=== PATIENT | male | born 1945 | race Two or more races ===

== ENCOUNTER → 2024-12-24 | Outpatient (CLI) | payer MEDICARE, BC, SELFPAY ==
[2024-12-24 11:39] LABS: Basophils % (Auto) 0 % (0-2.5); Eosinophils % (Auto) 1 % (0-10); Hematocrit 43.8 % (41.0-53.0); Hemoglobin 15.5 g/dL (13.5-16.0); Immature Granulocytes % (Auto) 0 % (0-0); Immature Granulocytes Auto 0.02 Thou/mm3 (0.00-0.00); Lymphocytes # (Auto) 1.2 Thou/mm3 (1.0-4.8); Lymphocytes % (Auto) 17 % (10-50); Mean Corpuscular HGB Conc 35.4 g/dl (31.0-37.0); Mean Corpuscular Volume 90 fL (80-100); Monocytes # (Auto) 0.5 Thou/mm3 (0.0-0.8); Monocytes % (Auto) 7 % (0-12); Neutrophils # (Auto) 5.3 Thou/mm3 (1.8-7.7); Neutrophils % (Auto) 74 % (37-80); Nucleated Red Blood Cell % 0 /100 WBC (0); Platelet Count 154 Thou/mm3 (140-440); RDW Standard Deviation 46.6 fL (35.1-43.9); Red Blood Count 4.85 Miln/mm3 (4.50-5.90); White Blood Count 7.1 Thou/mm3 (3.8-10.6)
[2024-12-24 11:48] LABS: Glucose Estimated Average 108 mg/dL (80-131); Hemoglobin A1C 5.4 % Hgb (4.8-6.0)
[2024-12-24 11:59] LABS: Alanine Aminotransferase 11 U/L (10-49); Albumin, Serum 4.1 gm/dL (3.4-4.8); Albumin/Globulin Ratio 1.6 (1.2-2.2); Alkaline Phosphatase 86 U/L (46-116); Anion Gap 10 (7-16); Aspartate Amino Transferase 14 U/L (0-34); BUN/Creatinine Ratio 21 Ratio (12-20); Bilirubin,Total 1.4 mg/dL (0.3-1.2); Blood Urea Nitrogen 19 mg/dL (9-23); Calcium 8.6 mg/dL (8.3-10.6); Calcium (Corrected) 8.6 mg/dL (8.5-10.1); Carbon Dioxide 23.2 mMol/L (20.0-31.0); Cardiac Risk Estimate 2.4 RATIO (4.0-6.7); Chloride 112 mMol/L (98-107); Cholesterol 136 mg/dL (132-200); Creatinine (Component) 0.9 mg/dL (0.6-1.3); Globulin 2.5 gm/dL (2.3-3.5); Glucose 102 mg/dL (74-106); HDL Cholesterol 56 mg/dL (40-60); LDL Cholesterol,Calculated 72 mg/dL (0-130); Osmolality,Calculated 290 (275-295); Potassium 4.1 mMol/L (3.4-5.1); Sodium 145 mMol/L (136-145); Thyroid Stimulating Hormone 1.13 uIU/mL (0.55-4.78); Total Protein 6.6 gm/dL (5.7-8.2); Triglycerides 38 mg/dL (30-150); eGFR > 60 See Note
[2024-12-24 12:00] LABS: Vitamin D 25 Hydroxy Total 34.2 ng/mL (7.3-40.2)
[2024-12-24 12:14] LABS: Prostate Specific Antigen 2.23 ng/mL (0-4.00)
== END | disposition home or self-care (01) ==
PROVIDERS: PCP Internal Medicine; Referring Provider Internal Medicine; Visit Provider Internal Medicine
DX: M19.90 Unspecified osteoarthritis, unspecified site (principal); E11.9 Type 2 diabetes mellitus without complications; E55.9 Vitamin D deficiency, unspecified; N40.1 Benign prostatic hyperplasia with lower urinary tract symptoms; E78.2 Mixed hyperlipidemia; E03.9 Hypothyroidism, unspecified
CPT/HCPCS: 36415; 80053; 80061; 82306; 83036; 84153; 84439; 84443; 85025

== ENCOUNTER 2025-03-15 03:13 | Inpatient (IN) | payer MEDICARE, BC, SELFPAY ==
[2025-03-15] VITALS (18 sets, daily range): BP systolic 101–116; BP diastolic 61–77; PULSE 68–130; RESP 14–24; TEMP 36.1–40.1; O2SAT 90–97; BMI 24.4
--- NOTE | 2025-03-15 03:25 | PD.EDAMS ---
Altered Mental Status RME/HPI General Chief Complaint: Altered Mental Status Stated Complaint: AMS Time Seen by Provider: 03/15/25 03:55 Arrival date/time: 03/15/25 03:13 RME / HPI RME / HPI narrative: Dr. Almeida?s Main ED Evaluation: 79yo male without significant prior medical history presents for rigors with fatigue and slight cough x 48 hours. Reported fever of 104.1 and arrived by EMS. Denies antecedant URI, abdominal pain, or diarrhea. 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 Reports baseline mild urinary frequenct, nocturia, and urgency. PMH unremarkable for HTN, DM, heart disease, or prior TIA; ?remote hx DVT. PSH noncontributory. Related Data Home Medications ?Medication ?Instructions ?Recorded ?Confirmed calcium carbonate (Calcium 500) 500 mg PO QDAY 02/16/19 10/24/22 cholecalciferol (vitamin D3) 25 1,000 unit PO QDAY 02/16/19 10/24/22 mcg (1,000 unit) capsule (Vitamin D3) ibuprofen 100 mg tablet 400 mg PO Q6H PRN Pain 02/16/19 10/24/22 Previous Rx's ?Medication ?Instructions ?Recorded acetaminophen 300 mg-codeine 30 mg 1 tab PO Q6H PRN pain #10 tabs 10/25/22 tablet Allergies Allergy/AdvReac Type Severity Reaction Status Date / Time No Known Allergies Allergy Verified 03/15/25 03:18 Review of Systems Review of Systems Systems Reviewed: All systems reviewed, normal except as documented Past Medical History Past Medical History NEUROLOGIC: Negative Neurological Disorders or Seizures CARDIAC: Negative Cardiac Disorders, Hypercholesterolemia, Congestive Heart Failure or Hypertension RESPIRATORY: Positive Sleep Apnea (has cpap, does not use); Negative Chronic Obstructive Pulmonary Disease (COPD) GASTROINTESTINAL: Negative Gastrointestinal Disorders GENITOURINARY: Positive Kidney Stones; Negative Renal Disease MUSCULOSKELETAL: Positive Musculoskeletal Disorders and Arthritis ENT: Positive Cataracts and Retinal Detachment (left eye) ENDOCRINE: Negative Diabetes Mellitus Type 1 or Diabetes Mellitus Type 2 HEMATOLOGIC: Negative Blood Disorders, Anemia or Leukemia OTHER HISTORY: Positive Falls; Negative Blood Transfusions, Blood Transfusion Reaction, Anesthesia Reactions or Cancer Surgical History SURGICAL: Positive Nose Surgery (septoplasty), Abdominal Surgery and Joint Replacement (left wrist has metal plate) Social History SMOKING STATUS: Never smoker ED Exam Narrative Physical exam: GENERAL APPEARANCE: alert and oriented x 4, tachycardic, febrile, no acute distress HEENT: Normocephalic, atraumatic; pupils equal, round, reactive to light; EOMI; mucous membranes pink, moist; oropharynx clear NECK: Supple LUNGS: CTABL; no wheezes, no rales, no rhonchi HEART: Tachycardic, irregularly irregular rhythm; normal S1, S2; no murmurs ABDOMEN: non distended; normal BS; soft, no tenderness, no guarding BACK: no CVA tenderness EXTREMITIES: atraumatic; no edema NEUROLOGIC: awake; alert and oriented x4; cranial nerves II-XII grossly intact; no focal sensory or motor deficits PSYCHIATRIC: appropriate mood and affect SKIN: warm, dry, normal color; no rashes Course Course Course Narrative: 0328: Sepsis alert initiated. Orders made at this time are congruent with ED Adult Sepsis Order List. Re-evaluation is to be completed. CXR ordered for determining the etiology of fever. 0534: NS IVF infused. Sepsis re-evaluation pending at the time of admission. Quality Measures Possible source: genitourinary Blood cultures ordered: yes Antibiotic ordered: Yes Pertinent labs: 03/15/25 03:50 Lactic Acid 2.0 mMol/L (0.4-2.0) Procalcitonin 7.93 H ng/ml (0.0-0.49) sepsis Orders Category Date Time Status Stem Mounter STAT Care 03/15/25 03:43 Active Continuous Pulse Oximetry STAT Care 03/15/25 03:43 Completed EKG (ED ONLY) *Do not use* NOW Care 03/15/25 03:43 Completed EKG (ED ONLY) *Do not use* NOW Care 03/15/25 05:23 Completed In and Out Catheter X1PRN Care 03/15/25 03:43 Completed Insert IV NOW Care 03/15/25 03:43 Active NPO STAT Care 03/15/25 03:43 Active Strict Intake and Output Routine Care 03/15/25 03:43 Ordered EKG (ED Only) Stat Exams 03/15/25 03:43 Draft EKG (ED Only) Stat Exams 03/15/25 05:23 Ordered XR chest 1V SEPSIS PROTOCOL Stat Exams 03/15/25 03:45 Taken Arterial Blood Gas Stat Lab 03/15/25 04:10 Completed B-Type Natriuretic Peptide Stat Lab 03/15/25 03:50 Completed Blood Culture (Lab) Stat Lab 03/15/25 03:50 Received CBC Stat Lab 03/15/25 03:50 Completed Comprehensive Metabolic Panel Stat Lab 03/15/25 03:50 Completed LDH (Lactate Dehydrogenase) Stat Lab 03/15/25 03:50 Completed Lactate (Lactic Acid) Stat Lab 03/15/25 03:50 Completed Lipase Stat Lab 03/15/25 03:50 Completed Magnesium Stat Lab 03/15/25 03:50 Completed Partial Thromboplastin Time Stat Lab 03/15/25 03:50 Completed Phosphorous Stat Lab 03/15/25 03:50 Completed Procalcitonin Stat Lab 03/15/25 03:50 Completed Prothrombin Time with INR Stat Lab 03/15/25 03:50 Completed TSH [Thyroid Stimulating Hormone] Stat Lab 03/15/25 05:23 Ordered Troponin I Stat Lab 03/15/25 03:50 Completed Troponin I Stat Lab 03/15/25 05:23 Ordered Urinalysis Stat Lab 03/15/25 04:11 Completed Urine Culture Stat Lab 03/15/25 04:11 Received Acetaminophen Tab [Tylenol ES Tab] Med 03/15/25 04:02 Discontinued 1,000 mg PO X1 ONE Magnesium Sulfate 4 GM Ivpb [Magnesium Sulfate Ivpb] Med 03/15/25 05:26 Active 4 gm in 50 ml IV X1 Piper/Tazo 3.375 gm Premix [Zosyn] Med 03/15/25 03:43 Discontinued 3.375 gm in 50 ml IV X1 Sodium Chloride 0.9% 1000 ml [Ns] 1,845 ml Med 03/15/25 03:43 Discontinued IV 1,845 mls/hr Vancomycin Inj 1,000 mg Med 03/15/25 03:45 Discontinued Sodium Chloride 0.9% 250 ml [Ns] 250 ml IV X1 Oxygen Delivery NOW RT 03/15/25 03:43 Active Vital Signs Vital signs: Vital Signs Temperature 104.1 F H 03/15/25 03:29 Pulse Rate 119 H 03/15/25 03:29 Respiratory Rate 19 03/15/25 03:29 Blood Pressure 114/69 03/15/25 03:29 Pulse Oximetry (%) 90 L 03/15/25 03:29 Oxygen Delivery Method Room Air 03/15/25 03:29 Altered Mental Status MDM Narrative MDM Narrative:: Scribe Attestation: 03/15/25 - Michelle Hickey, luis scribing for and in the presence of Dr. Almeida. 79yo male without significant prior medical history presents for rigors with fatigue and slight cough x 48 hours. Reported fever of 104.1 and arrived by EMS. Please see PE findings. Lab markers show WBC count 8.5, normal Hgb, normal platelets, left shift without bandemia. Chemistries demonstrates mildly elevated Cl 108, slightly low CO2 19, normal renal function, mildly elevated blood sugar 115, Total bilirubin slightly elevated at 1.6, normal transaminases, troponin elevated at 0.10, procalcitonin 7.9, lactate upper limits of normal at 2.0, Mg low at 1.3. Patient placed on equipment monitor phototypesetting and noted to be febrile with new onset of aFib RVR. Sepsis protocol initiated, cultures were obtained, and empiric antibiotics started. Troponin marginally elevated and likely rate-related ischemia. Patient aggressively hydrated according to sepsis protocol and after 120 minute period, patient converted to sinus tachycardia. Evidence of gross UTI. Will admit to hospitalist for further trending of troponins, treatment of underlying sepsis, and consider cardiology consult for new onset aFib. No signs of septic shock or evolving PR. Temperature decreased to 100.2 after antipyretic therapy. Dx: acute febrile illness, acute sepsis, new onset aFib with RVR, electrolyte imbalance, UTI. Dispo: admit to hospitalist. Patient data External records reviewed:: [facility] previous records (Per chart review, patient has no relevant previous ED visits or admissions to this facility.) and EMS form Clinical information provided by:: EMS Social determinants that could affect healthcare access:: none Patient has the following chronic illnesses:: none How is presenting disease/condition affected by chronic disease/condition?: no chronic disease Evaluation data The following diagnostics were reviewed and interpreted by me:: lab results, radiology exam(s) and EKG tracing(s) Lab and/or radiology exams considered but not ordered:: none Interpretation Summary: CXR shows no cardiomegaly, no pleural effusions, no infiltrates, according to my interpretation. EKG done at 0319, aFib RVR, rate of 124, no acute ST segment elevations, no ectopy, leftward axis, according to my interpretation. Repeat EKG done at 0525, NSR, rate of 99, no acute ST segment changes, no ectopy, leftward axis, normal intervals, according to my interpretation. Medications / Prescriptions Medications or Prescriptions considered but not ordered:: none Medication administrations:: Medication Administration History Magnesium Sulfate (Magnesium Sulfate Ivpb) 4 gm in 50 mls @ 12.5 mls/hr IV X1 ONE Stop: 03/15/25 09:25 Discontinued Medications Acetaminophen (Acetaminophen 500 Mg Tablet) 1,000 mg PO X1 ONE Stop: 03/15/25 04:03 Last Admin: 03/15/25 04:08 Dose: 1,000 mg Documented By: WILLAM Sodium Chloride (Ns) 1,845 mls @ 1,845 mls/hr 30 ml/kg infuse over 60 min (1845 ml) IV .Q1H ONE Stop: 03/15/25 04:42 Last Infusion: 03/15/25 05:34 Dose: Infused Documented By: Admin: 03/15/25 04:09 Dose: 1,845 mls/hr Documented By: WILLAM Piperacillin/Tazobactam/Dextrose (Zosyn) 3.375 gm in 50 mls @ 100 mls/hr IV X1 ONE Stop: 03/15/25 04:12 Last Infusion: 03/15/25 05:01 Dose: Infused Documented By: Admin: 03/15/25 04:09 Dose: 100 mls/hr Documented By: WILLMA Vancomycin HCl 1,000 mg/ (Sodium Chloride) 250 mls @ 150 mls/hr IV X1 ONE Stop: 03/15/25 05:24 Last Admin: 03/15/25 04:36 Dose: 150 mls/hr Documented By: WILLAM see above Consultations Consultation(s) initiated? (list below): Yes Consultation #1 (Physician, Specialty, Details): Discussed case with Dr. Vidales, the resident physician, attending Dr. Pinedo from Hospitalist service regarding admission. Discussed patients ED course, exam findings, labs, and radiology results. The Hospitalist agrees to accept the patient for admission. Time: 05:36 Diagnosis Differential diagnosis altered mental status: sepsis and other (UTI, pneumonia, COVID, Influenza, URI, viral syndrome) Most likely diagnosis given after review of the tests above:: acute febrile illness, acute sepsis, new onset aFib with RVR, electrolyte imbalance, UTI Admission Indicated Admission indicated?: indicated Admission Request Was there a request for admission?: Yes Admission Attestation Admission request attestation: Discussed case with [] from Hospitalist service regarding admission. Discussed patients ED course, exam findings, labs, and radiology results. The Hospitalist [agrees,declines] to accept the patient for admission. Disposition Plan Disposition Plan: Admit Critical Care Time Critical Care Time Critical Care Time: Yes Total Critical Care Time (min.): 45 Attestation: The high probability of sudden, clinically significant deterioration in the patient?s condition required the highest level of my preparedness to intervene urgently. The services I provided to this patient were to treat and/or prevent clinically significant deterioration. Services included the following: chart data review, reviewing nursing notes and/or old charts, documentation time, apprenticeship consultant collaboration regarding findings and treatment options, medication orders and management, direct patient care, vital sign assessments and ordering, interpreting and reviewing diagnostic studies and lab tests. Aggregate critical care time includes only time during which I was engaged in work directly related to the patient?s care, as described above, whether at bedside or elsewhere in the Emergency Department. It did not include time spent performing other reported procedures or the services of residents, students, nurses or physician assistants. Discharge Plan Plan Patient Disposition: Admit Acute Care w/in Hospital Prescriptions/Referrals Prescriptions/Med Rec: No Action calcium carbonate [Calcium 500] 500 mg calcium (1,250 mg) Tablet 500 mg PO QDAY ibuprofen 100 mg Tablet 400 mg PO Q6H PRN (Reason: Pain) cholecalciferol (vitamin D3) [Vitamin D3] 1,000 unit Capsule 1,000 unit PO QDAY acetaminophen-codeine 300-30 mg tablet 1 tab PO Q6H PRN (Reason: pain) Qty: 10 0RF Referrals: Josr Coronado MD [Primary Care Provider] - In 1 week Problem List Clinical Impression: Acute febrile illness, Acute sepsis, New onset a-fib, Electrolyte imbalance, UTI (urinary tract infection) Patient/Caregiver Discharge Instructions Print Language: Slovak Stand Alone Forms: [facility] Award Info., Patient Portal Info Letter
--- NOTE | 2025-03-15 03:43 | EKG_ITS ---
[facility] Test Date: 2025-03-15 Pat Name: FAUSTINO NIEVES Department: Room: - Gender: Male [employer] Worker: : 1945 Requested By: Jl Nunez Order Number: [id number] Reading MD: Jl Nunez Measurements Intervals Stanley Rate: 99 P: 2 VA: 152 QRS: -68 QRSD: 125 T: 35 QT: 381 QTc: 489 Interpretive Statements SINUS RHYTHM LEFT ANTERIOR FASCICULAR BLOCK [QRS AXIS <= -45, QR IN I, RS IN II] PROBABLE LATERAL MYOCARDIAL INFARCTION , PROBABLY OLD [35 ms Q WAVE IN I/aVL/V5/V6] Compared to ECG 10/24/2022 10:45:59 Myocardial infarct finding now present Sinus arrhythmia no longer present ST (T wave) deviation no longer present /store/S0/[id number]/[id number].pdf
--- NOTE | 2025-03-15 03:45 | XR_ITS ---
Examination: AP chest single view Technique one AP portable upright chest single view Date and time on March 15, 2025 0401 hours Comparison December 22, 2020 INDICATIONS: Sepsis alert FINDINGS: Minor rounding left ventricle Ectatic thoracic aorta. No lobar pneumonia. Bilateral old rib fractures IMPRESSION: No lobar pneumonia
[2025-03-15] MEDS: ACETAMINOPHEN 500 MG TABLET 1000 MG PO (04:08)
[2025-03-15] MEDS: SODIUM CHLORIDE 0.9% 1000 ML 1,845 ML 1845 ML IV (04:09)
[2025-03-15] MEDS: PIPER/TAZO 3.375 GM PREMIX 3.375 GM/50 ML BAG IV (04:09)
[2025-03-15 04:18] LABS: Collection Type, Urine Clean Catch; Squamous Epithelial Cell,Urine 0 /hpf (0-5)
[2025-03-15 04:18] LABS: Base Excess -1 (-3-3); HCO3 21 mEq/L (20-26); Inspired Oxygen, FIO2 21 %; O2 Saturation 95 % (91-98); PCO2 26 mmHg (32.0-48.0); PO2 66 mmHg (83-108); pH, Arterial 7.51 (7.35-7.45)
[2025-03-15 04:20] LABS: Allen Test Performed/OK; Puncture Site Right Radial
[2025-03-15 04:21] LABS: Lactate (Lactic Acid) 2.0 mMol/L (0.4-2.0)
[2025-03-15 04:22] LABS: Basophils # (Auto) 0.0 Thou/mm3 (0.0-0.2); Basophils % (Auto) 0 % (0-2.5); Eosinophils # (Auto) 0.0 Thou/mm3 (0.0-0.5); Eosinophils % (Auto) 0 % (0-10); Hematocrit 41.6 % (41.0-53.0); Hemoglobin 14.3 g/dL (13.5-16.0); Immature Granulocytes Auto 0.04 Thou/mm3 (0.00-0.00); Lymphocytes # (Auto) 0.2 Thou/mm3 (1.0-4.8); Lymphocytes % (Auto) 3 % (10-50); Mean Corpuscular HGB Conc 34.4 g/dl (31.0-37.0); Mean Corpuscular Hemoglobin 32.1 pg (25.0-35.0); Mean Corpuscular Volume 93 fL (80-100); Monocytes # (Auto) 0.2 Thou/mm3 (0.0-0.8); Monocytes % (Auto) 2 % (0-12); Neutrophils # (Auto) 8.1 Thou/mm3 (1.8-7.7); Neutrophils % (Auto) 95 % (37-80); Nucleated Red Blood Cell # 0.00 Thou/mm3 (0.00-0.00); Nucleated Red Blood Cell % 0 /100 WBC (0); Platelet Count 147 Thou/mm3 (140-440); RDW Standard Deviation 44.4 fL (35.1-43.9); Red Blood Count 4.46 Miln/mm3 (4.50-5.90); White Blood Count 8.5 Thou/mm3 (3.8-10.6)
[2025-03-15 04:35] LABS: Bacteria,Urine 1+; Bilirubin,Urine Negative (Negative); Blood,Urine Trace (Negative); Clarity,Urine Clear (Clear/Hazy); Color,Urine Lt-Yellow (Lt Yel-Yel); Glucose, Urine Negative (Negative); Ketones,Urine 1+ (Negative); Leukocyte Esterase,Urine Positive (Negative); Nitrite,Urine Positive (Negative); PH,Urine 7.0 (5.0-7.0); Protein,Urine Negative (Neg - Trace); RBC,Urine 18 /hpf (0-3); Specific Gravity,Urine 1.015 (1.001-1.035); Urobilinogen,Urine Negative mg/dL (0.0-1.0); WBC,Urine 33 /hpf (0-5)
[2025-03-15] MEDS: Vancomycin Inj 1,000 MG in SODIUM CHLORIDE 0.9% 250 ML 250 ML 150 MG IV (04:36)
[2025-03-15 04:49] LABS: INR 1.1 (0.9-1.3); Partial Thromboplastin Time 25.9 Seconds (22.0-36.0); Prothrombin Time 12.4 Seconds (9.0-12.2)
[2025-03-15 04:52] LABS: B-Type Natriuretic Peptide 76 pg/mL (0-100)
[2025-03-15 04:59] LABS: Alanine Aminotransferase 12 U/L (10-49); Albumin, Serum 3.9 gm/dL (3.4-4.8); Albumin/Globulin Ratio 1.8 (1.2-2.2); Alkaline Phosphatase 80 U/L (46-116); Anion Gap 14 (7-16); Aspartate Amino Transferase 19 U/L (0-34); BUN/Creatinine Ratio 17 Ratio (12-20); Bilirubin,Total 1.6 mg/dL (0.3-1.2); Blood Urea Nitrogen 17 mg/dL (9-23); Calcium 8.6 mg/dL (8.3-10.6); Calcium (Corrected) 8.7 mg/dL (8.5-10.1); Carbon Dioxide 19.2 mMol/L (20.0-31.0); Chloride 108 mMol/L (98-107); Creatinine (Component) 1.0 mg/dL (0.6-1.3); Estimated Creatinine Clearance 52.1 mL/min (>60); Globulin 2.2 gm/dL (2.3-3.5); Glucose 115 mg/dL (74-106); LDH (Lactate Dehydrogenase) 251 U/L (120-246); Lipase 27 U/L (12-53); Magnesium 1.3 mg/dL (1.6-2.6); Osmolality,Calculated 283 (275-295); Phosphorous 1.3 mg/dL (2.4-5.1); Potassium 3.4 mMol/L (3.4-5.1); Procalcitonin 7.93 ng/ml (0.0-0.49); Sodium 141 mMol/L (136-145); Total Protein 6.1 gm/dL (5.7-8.2); eGFR > 60 See Note
[2025-03-15 05:04] LABS: Troponin I 0.109 ng/mL (0.0-0.045)
[2025-03-15] MEDS: Magnesium Sulfate 4 GM Ivpb 4 GM/50 ML BAG IV (06:03)
[2025-03-15] MEDS: cefTRIAXone/D5w 1gm IV premix 1 GM/50 ML BAG IV ×2 (06:21→10:35)
--- NOTE | 2025-03-15 06:26 | PD.RESHP ---
Documentation for date of: 03/15/25 [facility] History of Present Illness History of present illness: Patient is a 79 years old male without known past medical history who presented to the ED with complaint of altered mental status. Patient stated that he was having chills requiring multiple blankets at home yesterday. Did not check his temperature at home though. He was found to be confused by his and EMS was called. Denied any shortness of breath, chest pain, abdominal pain, diarrhea or constipation. Patient does endorse dysuria, urgency and nocturia. At the time of exam, patient was alert and oriented, back to his baseline. Initial vitals were significant for temperature of 104.1 ?F, pulse 119, saturating well on room air. Lab results were significant for phosphorus 1.3, magnesium 1.3, total bilirubin 1.6, LDH 251, troponin 0.109, procalcitonin 7.93. Bicarbonate of 19.2, urinalysis showed 33 WBCs, positive leukocyte esterase and nitrite, 1+ bacteria. Chest x-ray does not show any infiltration. Patient was also found to be in A-fib with RVR in the ED. Resolved on its own after fluid resuscitation. Received 30 cc/kg of IV fluid bolus. Tylenol 1000 mg, vancomycin, Zosyn, magnesium Rocephin in the ED. Past medical history: None Past surgical history: 2 hips and 1 knee replacement, 2 hernia repair, Cochlear implant social history: Denies smoking, drinks 1 beer every day, denies illicit drug abuse Review of Systems Review of Systems Systems Reviewed: All systems reviewed, normal except as documented Exam Vital Signs Temp Pulse Resp BP Pulse Ox O2 Del Method O2 Flow Rate 100.2 F 100 18 116/77 94 L Room Air 2 03/15/25 05:34 03/15/25 05:33 03/15/25 05:33 03/15/25 05:33 03/15/25 05:33 03/15/25 05:33 03/15/25 04:13 Narrative Exam General: Appears comfortable, saturating well on room air, alert and oriented, able to answer questions and follow command appropriately HEENT: PERRLA, moist mucous membrane Chest: Clear to auscultate bilaterally, no wheeze or crackles CVS: S1 and S2 heard without murmur Abdomen: Soft, mild suprapubic tenderness, no organomegaly, bowel sounds present Neuro: Alert and oriented x 4, able to move all his limbs, no focal neurological deficit MSK/skin: Normal strength and sensation throughout, no edema Results: Labs 03/15/25 03:50 03/15/25 03:50 Labs: Short CBC 03/15/25 Range/Units 03:50 WBC 8.5 (3.8-10.6) Thou/mm3 Hgb 14.3 (13.5-16.0) g/dL Hct 41.6 (41.0-53.0) % Plt Count 147 (140-440) Thou/mm3 BMP 03/15/25 03:50 Sodium 141 Potassium 3.4 Chloride 108 H Carbon Dioxide 19.2 L BUN 17 Creatinine 1.0 Glucose 115 H Calcium 8.6 Cardiac Enzymes 03/15/25 Range/Units 03:50 Troponin I 0.109 H* (0.0-0.045) ng/mL Liver Function 03/15/25 Range/Units 03:50 Total Bilirubin 1.6 H (0.3-1.2) mg/dL AST 19 (0-34) U/L ALT 12 (10-49) U/L Alkaline Phosphatase 80 (46-116) U/L Albumin 3.9 (3.4-4.8) gm/dL Urine 03/15/25 Range/Units 04:11 Urine Color Lt-Yellow (Lt Yel-Yel) Urine Clarity Clear (Clear/Hazy) Urine pH 7.0 (5.0-7.0) Ur Specific [place] 1.015 (1.001-1.035) Urine Protein Negative (Neg - Trace) Urine Glucose (UA) Negative (Negative) ABG Interpretation ABG results: 03/15/25 04:10 ABG pH 7.51 H ABG pCO2 26 L ABG pO2 66 L ABG HCO3 21 ABG O2 Saturation 95 ABG Base Excess -1 Quality Measures Quality Measures sepsis Current suspected stage: sepsis Possible source: genitourinary Blood cultures ordered: yes Antibiotic ordered: Yes Advance care planning discussed with:: patient Medications Home Medications and Allergies Home Medications ?Medication ?Instructions ?Recorded ?Confirmed ?Type calcium carbonate (Calcium 500) 500 mg PO QDAY 02/16/19 10/24/22 History cholecalciferol (vitamin D3) 25 1,000 unit PO QDAY 02/16/19 10/24/22 History mcg (1,000 unit) capsule (Vitamin D3) ibuprofen 100 mg tablet 400 mg PO Q6H PRN Pain 02/16/19 10/24/22 History Allergies Allergy/AdvReac Type Severity Reaction Status Date / Time No Known Allergies Allergy Verified 03/15/25 03:18 Visit Medications Acetaminophen (Acetaminophen 325 Mg Tablet) 650 mg PO Q6H PRN PRN Reason: Fever >100.4 or pain Stop: 04/14/25 06:04 Hydrocodone Bitart/Acetaminophen (Hydrocodone/Apap 5/325 Tablet) 1 tab PO Q4HR PRN PRN Reason: PAIN SCALE 4-10(Mod-Sev Stop: 03/20/25 06:04 Docusate Sodium (Docusate Sod 100 Mg Capsule) 100 mg PO QDAY PRN; Protocol PRN Reason: CONSTIPATION Stop: 04/14/25 06:04 Enoxaparin Sodium (Enoxaparin Sod Inj 40 Mg/0.4 Ml Syringe) 40 mg SC QDAY [facility] Stop: 03/29/25 08:59 Magnesium Sulfate (Magnesium Sulfate Ivpb) 4 gm in 50 mls @ 12.5 mls/hr IV X1 ONE Stop: 03/15/25 09:25 Last Admin: 03/15/25 06:03 Dose: 12.5 mls/hr Ceftriaxone Sodium/Dextrose (Rocephin/D5w 1gm Iv Premix) 1 gm in 50 mls @ 100 mls/hr IV QDAY DANAE Stop: 03/22/25 06:06 Last Admin: 03/15/25 06:21 Dose: 100 mls/hr Sennosides (Senna Tablet) 1 tab PO QDAY PRN; Protocol PRN Reason: constipation Stop: 04/14/25 06:04 Discontinued Medications Acetaminophen (Acetaminophen 500 Mg Tablet) 1,000 mg PO X1 ONE Stop: 03/15/25 04:03 Last Admin: 03/15/25 04:08 Dose: 1,000 mg Aspirin (Aspirin 325 Mg Tablet) 325 mg PO X1 ONE Stop: 03/15/25 05:46 Last Admin: 03/15/25 06:03 Dose: 325 mg Sodium Chloride (Ns) 1,845 mls @ 1,845 mls/hr 30 ml/kg infuse over 60 min (1845 ml) IV .Q1H ONE Stop: 03/15/25 04:42 Last Infusion: 03/15/25 05:34 Dose: Infused Piperacillin/Tazobactam/Dextrose (Zosyn) 3.375 gm in 50 mls @ 100 mls/hr IV X1 ONE Stop: 03/15/25 04:12 Last Infusion: 03/15/25 05:01 Dose: Infused Vancomycin HCl 1,000 mg/ (Sodium Chloride) 250 mls @ 150 mls/hr IV X1 ONE Stop: 03/15/25 05:24 Last Infusion: 03/15/25 06:19 Dose: Infused Assessment & Plan Plan Patient is a 79 years old male without known past medical history who presented to the ED with complaint of altered mental status. Was found to be septic with fever, tachycardia, elevated troponin.After examination of the patient and review of the clinical data I feel that this patient needs admission to the hospital for further treatment/evaluation. #Acute encephalopathy #Sepsis #UTI Patient presented with altered mentation, currently resolved Was found to be febrile, tachycardic has elevated troponin as endorgan damage Received 30 cc/kg IV fluid bolus in the ED. Continue with gentle IV hydration Blood and urine cultures are obtained Started on Rocephin 1 g daily Acetaminophen for fever #Episode of A-fib Patient was found to be on A-fib in the ED, self resolved Currently in sinus rhythm, we will monitor closely Will consider starting anticoagulation and cardiac consult if patient has further episodes #Elevated troponin Likely NSTEMI type II in setting of sepsis/A-fib Troponin is 0.109, patient denies chest pain, minimal ST elevation on 3 Trend troponin and monitor for symptoms closely #Electrolyte imbalances Patient has magnesium of 1.3, phosphorus 1.3, Chloride 108 Received 4 g of magnesium sulfate, ordered Neutra-Phos we will monitor closely and replete as needed #Hyperbilirubinemia Patient has bilirubin of 1.6, rest of the LFTs are within normal limits No right upper quadrant pain Ordered liver ultrasound Diet: Cardiac diet CODE STATUS: Full code DVT prophylaxis: Lovenox SC Disposition: Telemetry for management of sepsis secondary to UTI Nicko Pinedo MD
--- NOTE | 2025-03-15 07:01 | XR_ITS ---
Examination: Abdomen sonogram, Limited Date and time of exam: March 15, 2025 0747 hours INDICATIONS: Right upper abdominal pain beginning 2 months ago, elevated bilirubin on laboratory examination today, 1.6 Technique: Real-time cardoza scale transabdominal sonographic images of the upper abdomen obtained. Findings: Normal gallbladder Normal common bile duct 0.4 cm Pancreatic head 2.3 cm Liver 15 cm 15 mm and 9 mm right lobe liver cyst No biliary tract dilatation Normal hepatopedal portal venous oh Patent IVC IMPRESSION: Normal gallbladder Normal common bile duct
[2025-03-15 08:19] LABS: Thyroid Stimulating Hormone 0.43 uIU/mL (0.55-4.78)
[2025-03-15 08:20] LABS: Troponin I 0.352 ng/mL (0.0-0.045)
[2025-03-15] MEDS: NAPH,KPH MBDB 1 PACKET (1.5 GM) PO (08:38)
[2025-03-15] MEDS: SODIUM CHLORIDE 0.9% 1000 ML 1,000 ML 70 ML IV (08:39)
--- NOTE | 2025-03-15 10:34 | ECHO_ITS ---
Transthoracic Echo Report Ht (in): 65 Wt (lb): 147 Exam Location: Echo Lab Status: Inpatient Derrick Worker Well Service: Keeley Yun Indications: Procedure Performed: BP: 122 / 89 HR: 78 MEASUREMENTS (Male / Female) Normal Values 2D ECHO LV Diastolic Diameter PLAX 4.3 cm 4.2 - 5.9 / 3.9 - 5.3 cm LV Systolic Diameter PLAX 2.9 cm IVS Diastolic Thickness 1.0 cm 0.6 - 1.0 / 0.6 - 0.9 cm LVPW Diastolic Thickness 1.1 cm 0.6 - 1.0 / 0.6 - 0.9 cm LV Relative Wall Thickness 0.5 LVOT Diameter 1.9 cm LA Volume Index 66.3 cm?/m? 16 - 28 cm?/m? Ascending Aorta Diameter 3.5 cm M-MODE AV Cusp Separation MM 2.5 cm DOPPLER AV Peak Velocity 120.0 cm/s AV Peak Gradient 5.8 mmHg AV Mean Gradient 3.0 mmHg AV Velocity Time Integral 22.7 cm AI Peak Velocity 353.0 cm/s AI Peak Gradient 49.8 mmHg AI Pressure Half Time 529.0 ms LVOT Peak Velocity 99.9 cm/s LVOT Peak Gradient 4.0 mmHg LVOT Velocity Time Integral 22.1 cm LVOT Cardiac Index 2780.1 cm?/min?m? AV Area Cont Eq vti 2.8 cm? AV Area Cont Eq pk 2.4 cm? MV Area PHT 3.0 cm? Mitral E Point Velocity 43.5 cm/s Mitral A Point Velocity 68.2 cm/s Mitral E to A Ratio 0.6 LV E' Lateral Velocity 6.4 cm/s Mitral E to LV E' Lateral Ratio 6.8 LV E' Septal Velocity 5.1 cm/s Mitral E to LV E' Septal Ratio 8.5 TR Peak Velocity 198.0 cm/s TR Peak Gradient 15.7 mmHg PV Peak Velocity 83.6 cm/s PV Peak Gradient 2.8 mmHg FINDINGS Left Ventricle Normal left ventricular size, wall thickness, systolic function with no obvious regional wall motion abnormalities. There is grade I diastolic dysfunction of the left ventricle (impaired relaxation pattern). The ejection fraction is visually estimated at 55-60 %. Right Ventricle The right ventricle is normal in size and systolic function. Left Atrium The left atrium is normal by two-dimensional, color flow and Doppler imaging. Left Atrial severely dilated. Right Atrium The right atrium is normal by two-dimensional imaging, color flow and Doppler imaging with no structural abnormalities, no thrombus formation present. Atrial Septum The interatrial septum appears normal with no evidence of a shunt. Aorta Ascending aorta dilated measuring 3.2 cm Mitral Valve The mitral valve is normal by two-dimensional, color flow and Doppler interrogation. Mild mitral regurgitation. Aortic Valve Mild to moderate aortic valve regurgitation. Mild thickening of the aortic valve leaflets. Tricuspid Valve The tricuspid valve is normal by two-dimensional, color flow and Doppler interrogation. There is trace tricuspid valve regurgitation. Pulmonic Valve Trace pulmonic valve regurgitation. Vessels The pulmonary artery appears normal. The inferior vena cava pulmonary and hepatic veins appear normal. Pericardium The pericardium is normal by two-dimensional imaging. There is no significant pericardial effusion. CONCLUSIONS Indication: CHF Grade I diastolic dysfunction. EF estimated 55-60% Left Atrium severely dilated Ascending aorta dilated measuring 3.2 cm Mild mitral regurgitation Aortic valve sclerosis with mild to moderate aortic regurgitation Mild tricuspid regurgitation Lisbeth Richards (Electronically Signed) Final Date: 16 March 2025 18:30
[2025-03-15] MEDS: ENOXAPARIN SOD INJ 40 MG/0.4 ML SYRINGE SC (10:35)
--- NOTE | 2025-03-15 16:09 | PC.NURSE ---
Report from Charles WALLACE in ER. Pt will be brought to room 275 shortly.
[2025-03-15 17:45] LABS: Troponin I 0.263 ng/mL (0.0-0.045)
--- NOTE | 2025-03-15 18:09 | PC.CC ---
1800-Pt is a 79 yo male who entered the ED on 03/15/25. ASW completed an initial visit with the pts Jory Harris [phone]. Jory reported that the pts PCP is Dr. Coronado, his pharmacy is [facility] on [address]. Priscilla stated the pt is his own decision maker and signs for himself, but in the event he cannot make decisions for himself, she will be his decision maker. Pt agreed to this as well. Pt stated he is a Full Code with limitations. Pt does not have a POLST/Advance directive on file. Pt fully amublates and does his own ADLs. There is no h/o medical conditions nor is there h/o mental health diagnosis. Pt denies using DME and denies using O2 at home. Pt does not see a medical grade shoemaker. Plan is for pt to return home when medically cleared. Pt has his family for support and his preferred moravian is [employer]. Surrogate decision maker: Jory Harris- d/c plan: home PCP: Dr. Sarah Coronado
[2025-03-15] MEDS: ATORVASTATIN CALCIUM 20 MG TABLET 80 MG PO (20:07)
[2025-03-15 20:14] LABS: Troponin I 0.219 ng/mL (0.0-0.045)
--- NOTE | 2025-03-15 20:23 | ESCONSULT_ITS ---
<Statement entered by Julienne Fierro MD - 03/21/25 18:26> I personally examined the patient evaluated the patient appears to have had infection and A-fib RVR trend send episode now doing well A-fib appears to be due to acute illness controlled well now we will treat this as 1 episode for now unless the patient has significant issues. I personally examined the patient and agree with the treatment plan recommendations documented by Dr. Patrick Salazar PGY2 HPI Data of Consult Requesting Physician: Nicko Pinedo MD Admitting Provider: Nicko Pinedo MD Attending Provider: Nicko Pinedo MD Primary Care Provider: Josr Coronado MD Consult Narrative History of present illness: History of Present Illness: This is an otherwise healthy 79 years-old male without known past medical history who presented to the ED altered mental status. Reported having servere cold and chills the night before admission. Additionally, he reports being out in the sun all day the day prior to presentation. He stated he wasn't drinking enough fluids that day. This morning, his called EMS as he was found confused. Denies headache, fever, chest pain, sob, cough, palpitations, syncope or presyncope. Denies GI or urinary symptoms. Past Medical History: * None reported. Past Surgical History: * 2 hips and 1 knee replacement, 2 hernia repair, Cochlear implant Medications: * None. Allergies: * NKA Family History: * No significant cardiac history or sudden cardiac . Social History: * Denies smoking, drinks 1 beer every day, denies illicit drug abuse ED Course: In ED, temperature of 104.1 ?F, pulse 119, saturating well on room air. Lab results were significant for phosphorus 1.3, magnesium 1.3, total bilirubin 1.6, LDH 251, troponin 0.109, procalcitonin 7.93. Bicarbonate of 19.2, urinalysis showed 33 WBCs, positive leukocyte esterase and nitrite, 1+ bacteria. Chest x- ray does not show any infiltration. Patient was also found to be in A-fib with RVR in the ED. Resolved on its own after fluid resuscitation. Received 30 cc/kg of IV fluid bolus. Tylenol 1000 mg, vancomycin, Zosyn, magnesium Rocephin in the ED. Reason for Consult: The patient presented with atrial fibrillation (A-fib) with rapid ventricular response (RVR) in the ED, which resolved on its own after receiving a 30 cc/kg IV fluid bolus. Troponin levels were mildly elevated at 0.109. He has no history of arrhythmia in the past. Otherwise asymptomatic. Likely new onset of AFIB in setting of acute illness. Recommendations: Most likely has NSTEMI type II with troponin peaked at 0.352, likely demand ischemia in settings of dehydration. He is otherwise asymptomatic without chest pain or palpitation. Recommended cardiac stratification, fluid resuscitation, and treating underlying cause i.e. UTI. As for A-fib, it appears to be a single known recurrent episode again. He is asymptomatic without palpitations or chest pain or shortness of breath. Will follow-up with echocardiogram to rule out any structural causes. No need for anticoagulation or antiarrhythmics at this point given that he had a single, short-lived, not recurrent episode of A-fib which resolved spontaneously without intervention. cc:: cc: Nicko Pinedo MD Exam Vital Signs Temp Pulse Resp BP Pulse Ox O2 Del Method O2 Flow Rate 96.9 F 68 22 H 114/75 97 Nasal Cannula 2 03/15/25 17:00 03/15/25 17:00 03/15/25 17:00 03/15/25 17:00 03/15/25 17:00 03/15/25 17:00 03/15/25 17:00 Narrative Exam GENERAL * Normal-appearing, well-nourished elderly male, NAD, on room air. HEENT * NCAT.?SMITH. Oral mucosa is moist. Patent Nares NECK * Supple, nontender, no JVD. CHEST * RRR, no m/g/r * CTAB, no w/r/r, symmetrical expansion. ABDOMEN * Soft, flat, nontender. No guarding/rebound tenderness/masses. * Bowel sounds presents EXTREMITIES * No edema/cyanosis.? SKIN * Warm and dry, no jaundice/rashes. NEUROMUSCULAR * Moves all 4 extremities well, with full ROM and good CSM. * No focal neurologic deficits. PSYCHIATRY * Normal mood and affect, cooperative, no SI or HI or hallucinations. Results Labs 03/16/25 05:01 03/16/25 05:01 Labs: Short CBC 03/15/25 Range/Units 03:50 WBC 8.5 (3.8-10.6) Thou/mm3 Hgb 14.3 (13.5-16.0) g/dL Hct 41.6 (41.0-53.0) % Plt Count 147 (140-440) Thou/mm3 BMP 03/15/25 03:50 Sodium 141 Potassium 3.4 Chloride 108 H Carbon Dioxide 19.2 L BUN 17 Creatinine 1.0 Glucose 115 H Calcium 8.6 Cardiac Enzymes 03/15/25 03/15/25 03/15/25 Range/Units 03:50 07:03 17:01 Troponin I 0.109 H* 0.352 H* D 0.263 H* (0.0-0.045) ng/mL 03/15/25 Range/Units 19:24 Troponin I 0.219 H* (0.0-0.045) ng/mL Liver Function 03/15/25 Range/Units 03:50 Total Bilirubin 1.6 H (0.3-1.2) mg/dL AST 19 (0-34) U/L ALT 12 (10-49) U/L Alkaline Phosphatase 80 (46-116) U/L Albumin 3.9 (3.4-4.8) gm/dL Urine 03/15/25 Range/Units 04:11 Urine Color Lt-Yellow (Lt Yel-Yel) Urine Clarity Clear (Clear/Hazy) Urine pH 7.0 (5.0-7.0) Ur Specific [place] 1.015 (1.001-1.035) Urine Protein Negative (Neg - Trace) Urine Glucose (UA) Negative (Negative) ABG Interpretation ABG results: 03/15/25 04:10 ABG pH 7.51 H ABG pCO2 26 L ABG pO2 66 L ABG HCO3 21 ABG O2 Saturation 95 ABG Base Excess -1 Quality Measures Quality Measures sepsis Current suspected stage: ruled out Possible source: genitourinary Blood cultures ordered: yes Antibiotic ordered: Yes Advance care planning discussed with:: patient Medications Home Medications and Allergies Home Medications ?Medication ?Instructions ?Recorded ?Confirmed ?Type No Known Home Medications 03/16/2503/05 History Allergies Allergy/AdvReac Type Severity Reaction Status Date / Time No Known Allergies Allergy Verified 03/15/25 03:18 Visit Medications Acetaminophen (Acetaminophen 325 Mg Tablet) 650 mg PO Q6H PRN PRN Reason: Fever >100.4 or pain Stop: 04/14/25 06:04 Hydrocodone Bitart/Acetaminophen (Hydrocodone/Apap 5/325 Tablet) 1 tab PO Q4HR PRN PRN Reason: PAIN SCALE 4-10(Mod-Sev Stop: 03/20/25 06:04 Atorvastatin Calcium (Atorvastatin Calcium 20 Mg Tablet) 80 mg PO HS DANAE Stop: 04/14/25 20:59 Last Admin: 03/15/25 20:07 Dose: 80 mg Docusate Sodium (Docusate Sod 100 Mg Capsule) 100 mg PO QDAY PRN; Protocol PRN Reason: CONSTIPATION Stop: 04/14/25 06:04 Enoxaparin Sodium (Enoxaparin Sod Inj 40 Mg/0.4 Ml Syringe) 40 mg SC QDAY DANAE Stop: 03/29/25 08:59 Last Admin: 03/15/25 10:35 Dose: 40 mg Ceftriaxone Sodium/Dextrose (Rocephin/D5w 1gm Iv Premix) 1 gm in 50 mls @ 100 mls/hr IV QDAY DANAE Stop: 03/22/25 06:06 Last Infusion: 03/15/25 11:05 Dose: Infused Sodium Chloride (Ns) 1,000 mls @ 70 mls/hr IV .[id number] DANAE Stop: 04/14/25 06:52 Last Admin: 03/15/25 08:39 Dose: 70 mls/hr Sennosides (Senna Tablet) 1 tab PO QDAY PRN; Protocol PRN Reason: constipation Stop: 04/14/25 06:04 Discontinued Medications Acetaminophen (Acetaminophen 500 Mg Tablet) 1,000 mg PO X1 ONE Stop: 03/15/25 04:03 Last Admin: 03/15/25 04:08 Dose: 1,000 mg Aspirin (Aspirin 325 Mg Tablet) 325 mg PO X1 ONE Stop: 03/15/25 05:46 Last Admin: 03/15/25 06:03 Dose: 325 mg Sodium Chloride (Ns) 1,845 mls @ 1,845 mls/hr 30 ml/kg infuse over 60 min (1845 ml) IV .Q1H ONE Stop: 03/15/25 04:42 Last Infusion: 03/15/25 05:34 Dose: Infused Piperacillin/Tazobactam/Dextrose (Zosyn) 3.375 gm in 50 mls @ 100 mls/hr IV X1 ONE Stop: 03/15/25 04:12 Last Infusion: 03/15/25 05:01 Dose: Infused Vancomycin HCl 1,000 mg/ (Sodium Chloride) 250 mls @ 150 mls/hr IV X1 ONE Stop: 03/15/25 05:24 Last Infusion: 03/15/25 06:19 Dose: Infused Magnesium Sulfate (Magnesium Sulfate Ivpb) 4 gm in 50 mls @ 12.5 mls/hr IV X1 ONE Stop: 03/15/25 09:25 Last Infusion: 03/15/25 10:04 Dose: Infused Potassium Phos/Sodium Phos (Naph,[facility] 1 Packet (1.5 Gm)) 1 packet PO X1 ONE Stop: 03/15/25 06:56 Last Admin: 03/15/25 08:38 Dose: 1 packet Assessment & Plan Plan A 79-year-old male with no significant past medical history presented with acute altered mental status after a day of sun exposure and poor oral intake, preceded by chills. On arrival to the ED, he was febrile to 104.1?F, tachycardic to 119 bpm, and found to have laboratory evidence of UTI (positive nitrite, leukocyte esterase, pyuria, bacteriuria) along with hypophosphatemia, hypomagnesemia, mild hyperbilirubinemia, elevated procalcitonin, and an initial troponin of 0.109 ng/mL peaking at 0.352 ng/mL. ECG revealed new-onset atrial fibrillation with rapid ventricular response, which resolved spontaneously after IV fluid resuscitation. 1) Transient, new onset, AFIB with RVR in setting of acute illness 2) NSTEMI type 2, demand ischemia He remained asymptomatic without chest pain, palpitations, or dyspnea. Findings were consistent with a Type 2 NSTEMI secondary to demand ischemia in the setting of dehydration and infection, and transient A-fib with RVR likely triggered by acute illness. Management included IV fluids, antibiotics for UTI, electrolyte repletion, and plans for echocardiography and cardiac risk stratification, with no current indication for anticoagulation or antiarrhythmic therapy. Case was discussed with attending physician, Dr. Fierro. Patrick Salazar, DO PGY II This document was transcribed using voice recognition technology. Minor inaccuracies may be present.
--- NOTE | 2025-03-15 21:14 | ESPR_ITS ---
<Statement entered by Mehul Brink MD - 03/16/25 11:21> Patient was examined and case was reviewed with team including attending physician. Note reviewed, I agree with most of its contents and agree with the patient's care. Patient seen today at the bedside found awake, alert, orientedx3. No overnight events reported. Vital signs stable at this time. Mental status improved now to baseline. Will continue with IV Abx and await culture results to later narrow down therapy. Mehul Brink MD PGY-2 Documentation for date of: 03/15/25 Subjective Subjective Interval history: Patient was evaluated in the ED this morning and was observed resting in bed while eating breakfast. He was at his baseline mental status, alert and oriented ?3. He reported experiencing shortness of breath for the past several months, which was exacerbated by exertion and relieved with rest. He denied any known history of cardiac disease. He reported onset of dysuria approximately 3?4 days prior and chills beginning the day before. He noted a prior history of urology evaluation for bladder drainage, though this was several years ago. Cardiology was consulted for evaluation of his shortness of breath and elevated troponin levels. Bladder scan was ordered. Exam Vital Signs Temp Pulse Resp BP Pulse Ox O2 Del Method O2 Flow Rate 96.9 F 68 22 H 114/75 97 Nasal Cannula 2 03/15/25 17:00 03/15/25 17:00 03/15/25 17:00 03/15/25 17:00 03/15/25 17:00 03/15/25 17:00 03/15/25 17:00 Narrative Exam Physical Exam General: Awake and in no acute distress. Conversational and non-toxic appearing. HEENT: Normocephalic, atraumatic, mucous membranes moist. Heart: Regular rate and rhythm, no murmurs. Lungs: Clear to auscultation with no wheezing or crackles. Abdomen: Soft, nondistended, nontender. No guarding or rebound tenderness. Neurologic: Alert and oriented x3, no gross neurological deficit, and patient able to move all 4 extremities. Extremities: No edema. Skin: No rash or ecchymoses. Objective Labs 03/16/25 05:01 03/16/25 05:01 Labs: Laboratory Results - last 24 hr 03/15/25 03/15/25 03/15/25 03:50 04:10 04:11 WBC 8.5 RBC 4.46 L Hgb 14.3 Hct 41.6 MCV 93 MCH 32.1 MCHC 34.4 RDW Std Deviation 44.4 H Plt Count 147 Neut % (Auto) 95 H Lymph % (Auto) 3 L [place] % (Auto) 2 Eos % (Auto) 0 Baso % (Auto) 0 Neut # (Auto) 8.1 H Lymph # (Auto) 0.2 L [place] # (Auto) 0.2 Eos # (Auto) 0.0 Baso # (Auto) 0.0 Immature Gran # (Auto) 0.04 H Absolute Nucleated RBC 0.00 Immature Gran % 1 H Nucleated RBC % 0 PT 12.4 H INR 1.1 APTT 25.9 Puncture Site Right Radial ABG pH 7.51 H ABG pCO2 26 L ABG pO2 66 L ABG HCO3 21 ABG O2 Saturation 95 ABG Base Excess -1 FiO2 21 Sodium 141 Potassium 3.4 Chloride 108 H Carbon Dioxide 19.2 L Anion Gap 14 BUN 17 Creatinine 1.0 Estim Creat Clear Calc 52.1 L eGFR > 60 BUN/Creatinine Ratio 17 Glucose 115 H Calculated Osmolality 283 Lactic Acid 2.0 Calcium 8.6 Corrected Calcium 8.7 Phosphorus 1.3 L Magnesium 1.3 L Total Bilirubin 1.6 H AST 19 ALT 12 Alkaline Phosphatase 80 Lactate Dehydrogenase 251 H Troponin I 0.109 H* B-Natriuretic Peptide 76 Total Protein 6.1 Albumin 3.9 Globulin 2.2 L Albumin/Globulin Ratio 1.8 Lipase 27 Procalcitonin 7.93 H TSH Ur Collection Type Clean Catch Urine Color Lt-Yellow Urine Clarity Clear Urine pH 7.0 Ur Specific Hardy 1.015 Urine Protein Negative Urine Glucose (UA) Negative Urine Ketones 1+ A Urine Blood Trace Urine Nitrite Positive Urine Bilirubin Negative Urine Urobilinogen (Auto) Negative Ur Leukocyte Esterase Positive Urine RBC 18 H Urine WBC 33 H Ur Squamous Epith Cells 0 Urine Bacteria 1+ A 03/15/25 03/15/25 03/15/25 07:03 17:01 19:24 WBC RBC Hgb Hct MCV MCH MCHC RDW Std Deviation Plt Count Neut % (Auto) Lymph % (Auto) [place] % (Auto) Eos % (Auto) Baso % (Auto) Neut # (Auto) Lymph # (Auto) [place] # (Auto) Eos # (Auto) Baso # (Auto) Immature Gran # (Auto) Absolute Nucleated RBC Immature Gran % Nucleated RBC % PT INR APTT Puncture Site ABG pH ABG pCO2 ABG pO2 ABG HCO3 ABG O2 Saturation ABG Base Excess FiO2 Sodium Potassium Chloride Carbon Dioxide Anion Gap BUN Creatinine Estim Creat Clear Calc eGFR BUN/Creatinine Ratio Glucose Calculated Osmolality Lactic Acid Calcium Corrected Calcium Phosphorus Magnesium Total Bilirubin AST ALT Alkaline Phosphatase Lactate Dehydrogenase Troponin I 0.352 H* D 0.263 H* 0.219 H* B-Natriuretic Peptide Total Protein Albumin Globulin Albumin/Globulin Ratio Lipase Procalcitonin TSH 0.43 L Ur Collection Type Urine Color Urine Clarity Urine pH Ur Specific Hardy Urine Protein Urine Glucose (UA) Urine Ketones Urine Blood Urine Nitrite Urine Bilirubin Urine Urobilinogen (Auto) Ur Leukocyte Esterase Urine RBC Urine WBC Ur Squamous Epith Cells Urine Bacteria ABG Interpretation ABG results: 03/15/25 04:10 ABG pH 7.51 H ABG pCO2 26 L ABG pO2 66 L ABG HCO3 21 ABG O2 Saturation 95 ABG Base Excess -1 Quality Measures Quality Measures sepsis Current suspected stage: sepsis Possible source: genitourinary Blood cultures ordered: yes Antibiotic ordered: Yes Advance care planning discussed with:: patient Assessment & Plan Assessment Current Active Medications: Generic Name Dose Route Start Last Admin Trade Name Freq PRN Reason Stop Dose Admin Acetaminophen 650 mg 03/15/25 06:05 Acetaminophen 325 Mg Tablet PO 04/14/25 06:04 Q6H PRN Fever >100.4 or pain Hydrocodone Bitart/Acetaminophen 1 tab 03/15/25 06:05 Hydrocodone/Apap 5/325 Tablet PO 03/20/25 06:04 Q4HR PRN PAIN SCALE 4-10(Mod-Sev Atorvastatin Calcium 80 mg 03/15/25 21:00 03/15/25 20:07 Atorvastatin Calcium 20 Mg Tablet PO 04/14/25 20:59 80 mg HS DANAE Administration Docusate Sodium 100 mg 03/15/25 06:05 Docusate Sod 100 Mg Capsule PO 04/14/25 06:04 QDAY PRN CONSTIPATION Protocol Enoxaparin Sodium 40 mg 03/15/25 09:00 03/15/25 10:35 Enoxaparin Sod Inj 40 Mg/0.4 Ml Syringe SC 03/29/25 08:59 40 mg QDAY DANAE Administration Ceftriaxone Sodium/Dextrose 1 gm in 50 mls @ 100 mls/hr 03/15/25 06:07 03/15/25 11:05 Rocephin/D5w 1gm Iv Premix IV 03/22/25 06:06 Infused QDAY DANAE Infusion Sodium Chloride 1,000 mls @ 70 mls/hr 03/15/25 06:53 03/15/25 08:39 Ns IV 04/14/25 06:52 70 mls/hr .[id number] DANAE Administration Sennosides 1 tab 03/15/25 06:05 Senna Tablet PO 04/14/25 06:04 QDAY PRN constipation Protocol Plan 79-year-old male without known past medical history presented with acute altered mental status, fever, and urinary symptoms, found to have sepsis complicated by electrolyte abnormalities and elevated troponin. #Acute encephalopathy (resolved) #Sepsis secondary to urinary tract infection Patient presented with altered mental status, which as resolved. Met sepsis criteria with fever, tachycardia and evidence of end-organ dysfunction (elevated troponin). Urinalysis was positive for leukocyte esterase, nitrites, and bacteria. Received a 30 cc/kg IV fluid bolus in ED. Blood and urine cultures are pending. Plan: - Continue Rocephin 1 gram daily. - Continue with gentle IV hydration. - Acetaminophen PRN for fever. - Follow blood and urine culture results and adjust antibiotics per sensitivities. - Monitor mental status, vitals. - Pending bladder scan. #Troponinemia Likely NSTEMI type II in setting of sepsis. Troponin peaked at 0.352. Likely demand ischemia secondary to sepsis, given absence of chest pain and only minimal ST elevation in V3. Received Aspirin 325 mg x1. Plan: - Cardiology consulted - awaiting recs. - Continue to monitor on telemetry. - Pending echo. - Repeat EKGs for any change in symptoms or rhythm. - Optimize hemodynamics and treat underlying sepsis - Maintain adequate oxygenation and avoid hypotension to reduce myocardial stress. - Continue Atorvastatin 80 mg daily. - Continue Enoxaparin 40 mg daily. #Transient, new onset, AFIB with RVR (resolved) Setting of acute illness. Asymptomatic without chest pain, palpitations, or dyspnea. Plan: - Cardiology consulted - awaiting recs. #Electrolyte imbalances #Hypomagnesemia #Hypophosphatemia Mg of 1.3 Phosphorous of 1.3 Plan: - Started IV magnesium sulfate 4 gram. - Started Neutra-Phos. - Recheck levels after repletion. - Monitor for associated arrhythmias. - Continue to replete electrolytes as needed to maintain Mg >2.0 and K+ > 4.0. #Hyperbilirubinemia Total bilirubin of 1.6, rest of the LFTs are within normal limits. No right upper quadrant pain. Liver ultrasound: Normal gallbladder, Normal common bile duct. Health Maintenance: Dispo: Telemetry for management of sepsis secondary to UTI DVT prophylaxis: Lovenox SC GI prophylaxis: none Diet: Cardiac diet Lines: Peripheral IV CODE STATUS: FULL Patient plan of care was discussed with the senior resident, Dr. Acosta, and attending physician, . Lenny Schmid DO Attending Provider Attestation/Addendum I, Kalyani Goss DO, attest that I was physically present for the warner portions of the service and evaluated the patient with the resident and I reviewed and discussed the case with the resident and agree with the resident's findings and plans of care as documented above Patient seen evaluated this afternoon in the ED. Patient states that he is feeling better. However, he does not recall how he ended up in the ED. He reported having some subjective fevers and chills. He has not been feeling well for the past few days. At baseline, patient is very active and rides horses. He does have some old rib fractures noted on chest x-ray. He also reports having a history of urinary retention requiring a urology eval in the past. However, patient denies any straining on urination or suprapubic discomfort. He does endorse having some dysuria and frequent urination. Per signout, patient was noted to have possible A-fib on presentation. Patient is now in sinus rhythm. Troponin has been uptrending now at 0.352. Will consult cardiology and obtain echocardiogram for further evaluation. Patient denies any active chest pain or shortness of breath otherwise. He denies any personal family history of cardiac disease. Will await blood cultures and urine cultures at this time due to concern for UTI. Continue with Rocephin at this time. He denies any history of frequent UTI in the past.
[2025-03-16] VITALS (8 sets, daily range): BP systolic 109–132; BP diastolic 71–89; PULSE 61–82; RESP 17–96; TEMP 36.1–36.9; O2SAT 96–99; BMI 23.0
[2025-03-16] MEDS: SODIUM CHLORIDE 0.9% 1000 ML 1,000 ML 70 ML IV ×2 (01:50→18:48)
[2025-03-16 06:30] LABS: INR 1.2 (0.9-1.3); Partial Thromboplastin Time 32.8 Seconds (22.0-36.0); Prothrombin Time 12.8 Seconds (9.0-12.2)
[2025-03-16 06:37] LABS: Basophils # (Auto) 0.0 Thou/mm3 (0.0-0.2); Basophils % (Auto) 1 % (0-2.5); Eosinophils # (Auto) 0.1 Thou/mm3 (0.0-0.5); Eosinophils % (Auto) 1 % (0-10); Hematocrit 36.0 % (41.0-53.0); Hemoglobin 12.1 g/dL (13.5-16.0); Immature Granulocytes Auto 0.01 Thou/mm3 (0.00-0.00); Lymphocytes # (Auto) 0.9 Thou/mm3 (1.0-4.8); Lymphocytes % (Auto) 22 % (10-50); Mean Corpuscular HGB Conc 33.6 g/dl (31.0-37.0); Mean Corpuscular Hemoglobin 32.5 pg (25.0-35.0); Mean Corpuscular Volume 97 fL (80-100); Monocytes # (Auto) 0.4 Thou/mm3 (0.0-0.8); Monocytes % (Auto) 10 % (0-12); Neutrophils # (Auto) 2.8 Thou/mm3 (1.8-7.7); Neutrophils % (Auto) 66 % (37-80); Nucleated Red Blood Cell # 0.00 Thou/mm3 (0.00-0.00); Nucleated Red Blood Cell % 0 /100 WBC (0); Platelet Count 106 Thou/mm3 (140-440); RDW Standard Deviation 47.1 fL (35.1-43.9); Red Blood Count 3.72 Miln/mm3 (4.50-5.90); White Blood Count 4.2 Thou/mm3 (3.8-10.6)
[2025-03-16 06:59] LABS: Alanine Aminotransferase 12 U/L (10-49); Albumin, Serum 2.9 gm/dL (3.4-4.8); Albumin/Globulin Ratio 1.7 (1.2-2.2); Alkaline Phosphatase 56 U/L (46-116); Anion Gap 8 (7-16); Aspartate Amino Transferase 22 U/L (0-34); BUN/Creatinine Ratio 14 Ratio (12-20); Bilirubin,Total 1.0 mg/dL (0.3-1.2); Blood Urea Nitrogen 11 mg/dL (9-23); Calcium 7.4 mg/dL (8.3-10.6); Calcium (Corrected) 8.3 mg/dL (8.5-10.1); Carbon Dioxide 22.8 mMol/L (20.0-31.0); Cardiac Risk Estimate 2.8 RATIO (4.0-6.7); Chloride 108 mMol/L (98-107); Cholesterol 90 mg/dL (132-200); Creatinine (Component) 0.8 mg/dL (0.6-1.3); Estimated Creatinine Clearance 65.1 mL/min (>60); Globulin 1.7 gm/dL (2.3-3.5); Glucose 89 mg/dL (74-106); HDL Cholesterol 32 mg/dL (40-60); LDL Cholesterol,Calculated 46 mg/dL (0-130); Magnesium 1.7 mg/dL (1.6-2.6); Osmolality,Calculated 275 (275-295); Phosphorous 2.1 mg/dL (2.4-5.1); Potassium 3.8 mMol/L (3.4-5.1); Sodium 139 mMol/L (136-145); Total Protein 4.6 gm/dL (5.7-8.2); Triglycerides 60 mg/dL (30-150); eGFR > 60 See Note
[2025-03-16] MEDS: ASPIRIN EC 81 MG TABEC PO (08:11)
[2025-03-16] MEDS: cefTRIAXone/D5w 1gm IV premix 1 GM/50 ML BAG IV (08:11)
[2025-03-16] MEDS: ENOXAPARIN SOD INJ 40 MG/0.4 ML SYRINGE SC (08:11)
--- NOTE | 2025-03-16 09:42 | ESPR_ITS ---
<Statement entered by Mehul Brink MD - 03/17/25 15:20> Patient was examined and case was reviewed with team including attending physician. Note reviewed, I agree with most of its contents and agree with the patient's care as documented by Dr. Schmid Case discussed with my attending Dr. Ana Paula Brink MD PGY-2 Disclaimer: Despite multiple revisions, due to the dictation software being used, the document bellow may not be free of grammatical errors including phonetic/typographic errors. However, this does not deter from our commitment to providing health care in the patient's best interest in mind. Documentation for date of: 03/16/25 Subjective Subjective Interval history: Patient was seen at the bedside this morning. He denies any shortness of breath and reports that he is able to breathe without the use of the nasal cannula. The patient also states that his dysuria has resolved, and he is now urinating without difficulty. His last bowel movement was yesterday. The patient mentions experiencing occasional right shoulder joint pain, which he typically manages with Tylenol, as ibuprofen causes constipation. Cardiology evaluated the patient yesterday and determined that the atrial fibrillation with rapid ventricular response was likely triggered by an acute illness. Plans include an echo, and there is no current indication for anticoagulation or antiarrhythmic therapy. Pending results include the echo, blood and urine cultures, and bladder scan evaluation. Exam Vital Signs Temp Pulse Resp BP Pulse Ox O2 Del Method O2 Flow Rate 98.0 F 61 18 122/80 97 Nasal Cannula 1 03/16/25 08:00 03/16/25 08:03/16/25 08:03/16/25 08:00 03/16/25 08:00 03/16/25 08:00 03/16/25 08:00 Narrative Exam Physical Exam General: Awake and in no acute distress. Conversational and non-toxic appearing. HEENT: Normocephalic, atraumatic, mucous membranes moist. Heart: Regular rate and rhythm, no murmurs. Lungs: Clear to auscultation with no wheezing or crackles. Abdomen: Soft, nondistended, nontender. No guarding or rebound tenderness. Neurologic: Alert and oriented x3, no gross neurological deficit, and patient able to move all 4 extremities. Extremities: No edema. Right shoulder with normal range of motion. Skin: No rash or ecchymoses. Objective Labs 03/17/25 05:03 03/17/25 05:03 Labs: Laboratory Results - last 24 hr 03/15/25 03/15/25 03/16/25 17:01 19:24 05:01 WBC 4.2 D RBC 3.72 L Hgb 12.1 L D Hct 36.0 L MCV 97 MCH 32.5 MCHC 33.6 RDW Std Deviation 47.1 H Plt Count 106 L D Neut % (Auto) 66 Lymph % (Auto) 22 [place] % (Auto) 10 Eos % (Auto) 1 Baso % (Auto) 1 Neut # (Auto) 2.8 Lymph # (Auto) 0.9 L [place] # (Auto) 0.4 Eos # (Auto) 0.1 Baso # (Auto) 0.0 Immature Gran # (Auto) 0.01 H Absolute Nucleated RBC 0.00 Immature Gran % 0 Nucleated RBC % 0 PT 12.8 H INR 1.2 APTT 32.8 Sodium 139 Potassium 3.8 Chloride 108 H Carbon Dioxide 22.8 Anion Gap 8 BUN 11 Creatinine 0.8 Estim Creat Clear Calc 65.1 eGFR > 60 BUN/Creatinine Ratio 14 Glucose 89 Calculated Osmolality 275 Calcium 7.4 L Corrected Calcium 8.3 L Phosphorus 2.1 L Magnesium 1.7 Total Bilirubin 1.0 D AST 22 ALT 12 Alkaline Phosphatase 56 D Troponin I 0.263 H* 0.219 H* Total Protein 4.6 L Albumin 2.9 L D Globulin 1.7 L Albumin/Globulin Ratio 1.7 Triglycerides 60 Cholesterol 90 L LDL Cholesterol, Calc 46 HDL Cholesterol 32 L Cholesterol/HDL Ratio 2.8 L ABG Interpretation ABG results: 03/15/25 04:10 ABG pH 7.51 H ABG pCO2 26 L ABG pO2 66 L ABG HCO3 21 ABG O2 Saturation 95 ABG Base Excess -1 Quality Measures Quality Measures sepsis Current suspected stage: ruled out Possible source: genitourinary Blood cultures ordered: yes Antibiotic ordered: Yes Advance care planning discussed with:: patient Assessment & Plan Assessment Current Active Medications: Generic Name Dose Route Start Last Admin Trade Name Freq PRN Reason Stop Dose Admin Acetaminophen 650 mg 03/15/25 06:05 Acetaminophen 325 Mg Tablet PO 04/14/25 06:04 Q6H PRN Fever >100.4 or pain Hydrocodone Bitart/Acetaminophen 1 tab 03/15/25 06:05 Hydrocodone/Apap 5/325 Tablet PO 03/20/25 06:04 Q4HR PRN PAIN SCALE 4-10(Mod-Sev Aspirin 81 mg 03/16/25 09:00 03/16/25 08:11 Aspirin Ec 81 Mg Tabec PO 04/15/25 08:59 81 mg QDAY DANAE Administration Atorvastatin Calcium 80 mg 03/15/25 21:00 03/15/25 20:07 Atorvastatin Calcium 20 Mg Tablet PO 04/14/25 20:59 80 mg HS DANAE Administration Docusate Sodium 100 mg 03/15/25 06:05 Docusate Sod 100 Mg Capsule PO 04/14/25 06:04 QDAY PRN CONSTIPATION Protocol Enoxaparin Sodium 40 mg 03/15/25 09:00 03/16/25 08:11 Enoxaparin Sod Inj 40 Mg/0.4 Ml Syringe SC 03/29/25 08:59 40 mg QDAY DANAE Administration Ceftriaxone Sodium/Dextrose 1 gm in 50 mls @ 100 mls/hr 03/15/25 06:07 03/16/25 08:11 Rocephin/D5w 1gm Iv Premix IV 03/22/25 06:06 100 mls/hr QDAY DANAE Administration Sodium Chloride 1,000 mls @ 70 mls/hr 03/15/25 06:53 03/16/25 01:50 Ns IV 04/14/25 06:52 70 mls/hr .[id number] DANAE Administration Magnesium Sulfate 4 gm in 50 mls @ 12.5 mls/hr 03/16/25 07:47 Magnesium Sulfate Ivpb IV 03/16/25 11:46 X1 ONE Potassium Phosphate 15 mmol in 250 mls @ 62.5 mls/hr 03/16/25 07:50 Pot Phos 15 Mmol In Ns 250 Ml IV 03/16/25 11:49 X1 ONE Sennosides 1 tab 03/15/25 06:05 Senna Tablet PO 04/14/25 06:04 QDAY PRN constipation Protocol Plan 79-year-old male without known past medical history presented with acute altered mental status, fever, and urinary symptoms, found to have sepsis complicated by electrolyte abnormalities and elevated troponin. #Acute encephalopathy (resolved) #Sepsis secondary to urinary tract infection Patient presented with altered mental status, which as resolved. Met sepsis criteria with fever, tachycardia and evidence of end-organ dysfunction (elevated troponin). Urinalysis was positive for leukocyte esterase, nitrites, and bacteria. Received a 30 cc/kg IV fluid bolus in ED. Blood and urine cultures are pending. Plan: - Continue Rocephin 1 gram daily. - Continue with gentle IV hydration. - Acetaminophen PRN for fever. - Follow blood and urine culture results and adjust antibiotics per sensitivities. - Monitor mental status, vitals. - Pending bladder scan. #Troponinemia #NSTEMI type 2 #Transient, new onset, AFIB with RVR (resolved) Likely due to demand ischemia in setting of dehydration and infection, given absence of chest pain and only minimal ST elevation in V3. Transient A-fib with RVR likely triggered by acute illness. Troponin peaked at 0.352. Received Aspirin 325 mg x1. Plan: - Per cardio, no current indication for anticoagulation or antiarrhythmic therapy. - Pending echo. - Continue to monitor on telemetry. - Repeat EKGs for any change in symptoms or rhythm. - Optimize hemodynamics and treat underlying sepsis. - Maintain adequate oxygenation and avoid hypotension to reduce myocardial stress. - Continue Atorvastatin 80 mg daily. - Continue Enoxaparin 40 mg daily for DVT prophylaxis. #Electrolyte imbalances #Hypomagnesemia #Hypophosphatemia Mg of 1.3 --> 1.7 Phosphorous of 1.3 --> 2.1 Plan: - Started IV magnesium sulfate 4 gram. - Started Neutra-Phos. - Recheck levels after repletion. - Monitor for associated arrhythmias. - Continue to replete electrolytes as needed to maintain Mg >2.0 and K+ > 4.0. #Hyperbilirubinemia (resolved) Total bilirubin of 1.6, rest of the LFTs are within normal limits. No right upper quadrant pain. Liver ultrasound: Normal gallbladder, Normal common bile duct. Health Maintenance: Dispo: Telemetry for management of sepsis secondary to UTI DVT prophylaxis: Enoxaparin GI prophylaxis: none Diet: Cardiac diet Lines: Peripheral IV CODE STATUS: FULL Patient plan of care was discussed with the senior resident, Dr. Acosta, and attending physician, . Lenny Schmid DO Attending Provider Attestation/Addendum I, Kalyani Goss DO, attest that I was physically present for the warner portions of the service and evaluated the patient with the resident and I reviewed and discussed the case with the resident and agree with the resident's findings and plans of care as documented above Patient seen and evaluated this AM. He states he is feeling much improved. No further episodes of fevers or chills. UCx positive for GNR. Will await final C/s. no further episodes of afib, appeared to be 2/2 to acute illness per cardio. Pending echocardiogram at this time. Patient reports no issues with voiding or dysuria.
[2025-03-16] MEDS: POT PHOS 15 mMol in NS 250 ML 15 MMOL/250 ML BAG 62.5 MMOL IV (09:48)
[2025-03-16] MEDS: Magnesium Sulfate 4 GM Ivpb 4 GM/50 ML BAG IV (09:49)
--- NOTE | 2025-03-16 14:26 | PC.SS ---
Rounding Note: Echo is pending. Patient receiving IV antibiotics.
[2025-03-16] MEDS: ACETAMINOPHEN 325 MG TABLET 650 MG PO (20:17)
[2025-03-17] VITALS (9 sets, daily range): BP systolic 106–139; BP diastolic 73–91; PULSE 66–149; RESP 18–97; TEMP 36.1–36.6; O2SAT 93–97
[2025-03-17] MEDS: HYDROcodone/APAP 5/325 TABLET 1 TAB PO (00:07)
--- NOTE | 2025-03-17 00:32 | ESPR_ITS ---
<Statement entered by Julienne Fierro MD - 03/21/25 18:27> I personally examined the patient evaluated patient there were atrial fibrillation rapid rate amiodarone was given controlled well clinically doing much better will start the patient amiodarone Eliquis for now I would have the patient with resident physician PGY 2 Dr. Patrick Salazar PGY2 agree with the treatment plan recommendation as documented Documentation for date of: 03/18/25 Subjective Subjective Interval history: No acute overnight events. Denies new or worsening symptoms. Denies fever, chills, headaches, chest pain, sob, cough, GI or urinary symptoms. Today, he had atrial fibrillation with RVR, heart rate around 129, although asymptomatic without dizziness, chest pain or palpitation. AMIODARONE drip and ELIQUIS have been started. Will continue to monitor closely. Exam Vital Signs Temp Pulse Resp BP Pulse Ox O2 Del Method O2 Flow Rate 97.0 F 74 19 136/87 H 97 Room Air 1 03/18/25 00:00 03/18/25 00:00 03/18/25 00:00 03/18/25 00:00 03/18/25 00:00 03/18/25 00:00 03/17/25 16:00 Narrative Exam GENERAL * Normal-appearing, well-nourished elderly male, NAD, on room air. HEENT * NCAT.?SMITH. Oral mucosa is moist. Patent Nares NECK * Supple, nontender, no JVD. CHEST * RRR, no m/g/r * CTAB, no w/r/r, symmetrical expansion. ABDOMEN * Soft, flat, nontender. No guarding/rebound tenderness/masses. * Bowel sounds presents EXTREMITIES * No edema/cyanosis.? SKIN * Warm and dry, no jaundice/rashes. NEUROMUSCULAR * Moves all 4 extremities well, with full ROM and good CSM. * No focal neurologic deficits. PSYCHIATRY * Normal mood and affect, cooperative, no SI or HI or hallucinations. Objective Labs 03/17/25 05:03 03/17/25 05:03 Labs: Laboratory Results - last 24 hr 03/17/25 03/17/25 05:03 18:24 WBC 4.5 RBC 4.01 L Hgb 12.9 L Hct 38.0 L MCV 95 MCH 32.2 MCHC 33.9 RDW Std Deviation 45.7 H Plt Count 145 D Neut % (Auto) 54 Lymph % (Auto) 32 [place] % (Auto) 12 Eos % (Auto) 2 Baso % (Auto) 1 Neut # (Auto) 2.4 Lymph # (Auto) 1.4 [place] # (Auto) 0.5 Eos # (Auto) 0.1 Baso # (Auto) 0.0 Immature Gran # (Auto) 0.01 H Absolute Nucleated RBC 0.00 Immature Gran % 0 Nucleated RBC % 0 APTT 30.5 30.9 Sodium 141 Potassium 4.0 Chloride 108 H Carbon Dioxide 23.9 Anion Gap 9 BUN 8 L Creatinine 0.7 Estim Creat Clear Calc 74.4 eGFR > 60 BUN/Creatinine Ratio 11 L Glucose 81 Calculated Osmolality 278 Calcium 8.5 Corrected Calcium 9.1 Phosphorus 2.1 L Magnesium 2.1 Total Bilirubin 0.7 AST 17 ALT 13 Alkaline Phosphatase 60 Total Protein 5.4 L Albumin 3.3 L Globulin 2.1 L Albumin/Globulin Ratio 1.6 ABG Interpretation ABG results: 03/15/25 04:10 ABG pH 7.51 H ABG pCO2 26 L ABG pO2 66 L ABG HCO3 21 ABG O2 Saturation 95 ABG Base Excess -1 Quality Measures Quality Measures sepsis Current suspected stage: ruled out Possible source: genitourinary Blood cultures ordered: yes Antibiotic ordered: Yes Advance care planning discussed with:: patient Assessment & Plan Assessment Current Active Medications: Generic Name Dose Route Start Last Admin Trade Name Freq PRN Reason Stop Dose Admin Acetaminophen 650 mg 03/16/25 10:12 03/16/25 20:17 Acetaminophen 325 Mg Tablet PO 04/14/25 06:04 650 mg Q6H PRN Administration Fever >100.4 or pain 1-3 Hydrocodone Bitart/Acetaminophen 1 tab 03/15/25 06:05 03/17/25 00:07 Hydrocodone/Apap 5/325 Tablet PO 03/20/25 06:04 1 tab Q4HR PRN Administration PAIN SCALE 4-10(Mod-Sev Apixaban 5 mg 03/17/25 13:15 03/17/25 20:12 Apixaban 2.5 Mg Tablet PO 04/16/25 13:14 5 mg BID DANAE Administration Docusate Sodium 100 mg 03/15/25 06:05 Docusate Sod 100 Mg Capsule PO 04/14/25 06:04 QDAY PRN CONSTIPATION Protocol Ceftriaxone Sodium/Dextrose 1 gm in 50 mls @ 100 mls/hr 03/15/25 06:07 03/17/25 08:41 Rocephin/D5w 1gm Iv Premix IV 03/22/25 06:06 100 mls/hr QDAY DANAE Administration Amiodarone HCl/Dextrose 360 mg in 200 mls @ 16.667 mls/hr 03/17/25 13:23 03/17/25 14:20 Nexterone Ivpb IV 03/18/25 13:22 16.667 mls/hr .Q12H DANAE Administration Amiodarone HCl/Dextrose 360 mg in 200 mls @ 33.333 mls/hr 03/18/25 13:23 Nexterone Ivpb IV 03/18/25 19:22 .Q6H ONE Sennosides 1 tab 03/15/25 06:05 Senna Tablet PO 04/14/25 06:04 QDAY PRN constipation Protocol Plan A 79-year-old male with no significant past medical history presented with acute altered mental status after a day of sun exposure and poor oral intake, preceded by chills. On arrival to the ED, he was febrile to 104.1?F, tachycardic to 119 bpm, and found to have laboratory evidence of UTI (positive nitrite, leukocyte esterase, pyuria, bacteriuria) along with hypophosphatemia, hypomagnesemia, mild hyperbilirubinemia, elevated procalcitonin, and an initial troponin of 0.109 ng/mL peaking at 0.352 ng/mL. ECG revealed new-onset atrial fibrillation with rapid ventricular response, which resolved spontaneously after IV fluid resuscitation. 1) AFIB with RVR in setting of acute illness 2) NSTEMI type 2, demand ischemia He remained asymptomatic without chest pain, palpitations, or dyspnea. On admission, he had an episode of A-fib with RVR, which have resolved since. However, he had a recurrent episode of A-fib with RVR. At this point, he likely had chronic A-fib not previously diagnosed. EKG today A-fib with RVR with heart rate 129, and we started AMIODARONE GGT as well as ELIQUIS. Otherwise he is asymptomatic during these episodes. Rate appeared to be controlled at this point. Will transition to oral AMIODARONE after back completion. He will need lifetime anticoagulation. Echocardiogram showed EF 55 to 60%, grade 1 diastolic dysfunction, severely dilated left atrium, mild MR, aortic sclerosis with mild regurgitation, mild tricuspid regurgitation. Findings were consistent with a Type 2 NSTEMI secondary to demand ischemia in the setting of dehydration and infection, and transient A-fib with RVR likely triggered by acute illness. Management included IV fluids, antibiotics for UTI, electrolyte repletion. Continue with AMIODARONE gtt., transition to oral. Continue with lifelong anticoagulation. Maintain K>4.0 and Mag>2.0. Avoid proarrhythmic drugs. Case was discussed with attending physician, Dr. Fierro. Patrick Salazar, DO PGY II This document was transcribed using voice recognition technology. Minor inaccuracies may be present.
[2025-03-17 06:41] LABS: Basophils # (Auto) 0.0 Thou/mm3 (0.0-0.2); Basophils % (Auto) 1 % (0-2.5); Eosinophils # (Auto) 0.1 Thou/mm3 (0.0-0.5); Eosinophils % (Auto) 2 % (0-10); Hematocrit 38.0 % (41.0-53.0); Hemoglobin 12.9 g/dL (13.5-16.0); Immature Granulocytes Auto 0.01 Thou/mm3 (0.00-0.00); Lymphocytes # (Auto) 1.4 Thou/mm3 (1.0-4.8); Lymphocytes % (Auto) 32 % (10-50); Mean Corpuscular HGB Conc 33.9 g/dl (31.0-37.0); Mean Corpuscular Hemoglobin 32.2 pg (25.0-35.0); Mean Corpuscular Volume 95 fL (80-100); Monocytes # (Auto) 0.5 Thou/mm3 (0.0-0.8); Monocytes % (Auto) 12 % (0-12); Neutrophils # (Auto) 2.4 Thou/mm3 (1.8-7.7); Neutrophils % (Auto) 54 % (37-80); Nucleated Red Blood Cell # 0.00 Thou/mm3 (0.00-0.00); Nucleated Red Blood Cell % 0 /100 WBC (0); Platelet Count 145 Thou/mm3 (140-440); RDW Standard Deviation 45.7 fL (35.1-43.9); Red Blood Count 4.01 Miln/mm3 (4.50-5.90); White Blood Count 4.5 Thou/mm3 (3.8-10.6)
[2025-03-17 06:58] LABS: Alanine Aminotransferase 13 U/L (10-49); Albumin, Serum 3.3 gm/dL (3.4-4.8); Albumin/Globulin Ratio 1.6 (1.2-2.2); Alkaline Phosphatase 60 U/L (46-116); Anion Gap 9 (7-16); Aspartate Amino Transferase 17 U/L (0-34); BUN/Creatinine Ratio 11 Ratio (12-20); Bilirubin,Total 0.7 mg/dL (0.3-1.2); Blood Urea Nitrogen 8 mg/dL (9-23); Calcium 8.5 mg/dL (8.3-10.6); Calcium (Corrected) 9.1 mg/dL (8.5-10.1); Carbon Dioxide 23.9 mMol/L (20.0-31.0); Chloride 108 mMol/L (98-107); Creatinine (Component) 0.7 mg/dL (0.6-1.3); Estimated Creatinine Clearance 74.4 mL/min (>60); Globulin 2.1 gm/dL (2.3-3.5); Glucose 81 mg/dL (74-106); Magnesium 2.1 mg/dL (1.6-2.6); Osmolality,Calculated 278 (275-295); Phosphorous 2.1 mg/dL (2.4-5.1); Potassium 4.0 mMol/L (3.4-5.1); Sodium 141 mMol/L (136-145); Total Protein 5.4 gm/dL (5.7-8.2); eGFR > 60 See Note
[2025-03-17] MEDS: SODIUM CHLORIDE 0.9% 1000 ML 1,000 ML 70 ML IV (08:41)
[2025-03-17] MEDS: ENOXAPARIN SOD INJ 40 MG/0.4 ML SYRINGE SC (08:41)
[2025-03-17] MEDS: cefTRIAXone/D5w 1gm IV premix 1 GM/50 ML BAG IV (08:41)
--- NOTE | 2025-03-17 09:24 | EKG_ITS ---
[facility] Test Date: 2025-03-17 Pat Name: FAUSTINO NIEVES [facility] Gender[facility] Lunch Counter Manager: FATOUMATA : 1945 Requested By: Mehul Brink Order Number: [id number] Reading MD: Mehul Brink Measurements Intervals [place] Rate: 129 P: SD: QRS: -74 QRSD: 112 T: 70 QT: 327 QTc: 479 Interpretive Statements ATRIAL FIBRILLATION WITH RAPID VENTRICULAR RESPONSE LEFT ANTERIOR FASCICULAR BLOCK Compared to ECG 03/15/2025 05:25:15 Sinus rhythm no longer present Myocardial infarct finding no longer present /store/S0/[id number]/[id number].pdf
--- NOTE | 2025-03-17 09:26 | PC.NURSE ---
Dr. Astudillo made aware patients heart rate increased when standing. Patients heart rate 180s while using the urinal. Patient denies symptoms. EKG ordered.
[2025-03-17 10:42] LABS: Partial Thromboplastin Time 30.5 Seconds (22.0-36.0)
[2025-03-17] MEDS: HEPARIN SOD INJ 5000 UNIT/ML VIAL 3700 UNIT IV (11:34)
[2025-03-17] MEDS: Heparin/D5w 25K 250 ML Ivpb 25,000 UNIT/250 ML BAG 7.532 UNIT IV (11:34)
[2025-03-17] MEDS: NAPH,KPH MBDB 1 PACKET (1.5 GM) PO (11:40)
--- NOTE | 2025-03-17 12:43 | PC.SS ---
ALUMINUM MOLDER confirmed that patient has been transitioned off oxygen. Patient had been on 1L of oxygen. Bedside to update ALUMINUM MOLDER if patient transitions back to oxygen. ALUMINUM MOLDER updated patient. If home oxygen required no preferred DME identified.
[2025-03-17] MEDS: AMIODARONE 150 MG IVPB 150 MG/100 ML BAG 600 MG IV (14:13)
[2025-03-17] MEDS: APIXABAN 2.5 MG TABLET 5 MG PO ×2 (14:20→20:12)
[2025-03-17] MEDS: AMIODARONE 360 MG IVPB 360 MG/200 ML BAG 16.667 MG IV (14:20)
--- NOTE | 2025-03-17 14:20 | PC.SS ---
Rounding Note: Patient is A-FIB. Heparin drip in place.
--- NOTE | 2025-03-17 15:47 | PC.PT ---
PT eval received. Chart reviewed, and as per chart, patient were able to stand up and transfers. Patient states he is ambulatory and does not need PT. This is confirmed by nursing staff. Informed ordering physician Evangelist Pena to cancel PT evaluation.
--- NOTE | 2025-03-17 17:31 | ESPR_ITS ---
<Statement entered by Mehul Brink MD - 03/17/25 18:03> Patient was examined and case was reviewed with team including attending physician. Note reviewed, I agree with most of its contents and agree with the patient's care as documented by Dr. Schmid Patient seen today at the bedside found awake, alert, orientedx3. No overnight events reported. Vitals and labs reviewed. Throughout the day patient was reported to have heart rate in the 130s even up to the 180s. EKG was done which showed atrial fibrillation with RVR patient was subsequently started on amiodarone drip and anticoagulation with Eliquis. Cardiology notified. Case discussed with my attending Dr. Royal Brink MD PGY-2 Disclaimer: Despite multiple revisions, due to the dictation software being used, the document bellow may not be free of grammatical errors including phonetic/typographic errors. However, this does not deter from our commitment to providing health care in the patient's best interest in mind. Documentation for date of: 03/17/25 Subjective Subjective Interval history: Patient was evaluated at the bedside this morning. He reports increased urinary frequency without dysuria and had two bowel movements earlier today. He endorses mild shortness of breath and is no longer using the nasal cannula. Nursing staff called and reported that patient's heart rate increased to the 180s while using the urinal. He remained asymptomatic. An EKG revealed atrial fibrillation with rapid ventricular response. Cardiology was consulted and recommended initiating an amiodarone drip and Eliquis. A referral to physical therapy was placed. However patient declined, stating he is ambulating without difficulty. The referral was subsequently cancelled. Exam Vital Signs Temp Pulse Resp BP Pulse Ox O2 Del Method O2 Flow Rate 97.9 F 112 H 23 H 106/74 95 Nasal Cannula 1 03/17/25 16:00 03/17/25 16:00 03/17/25 16:00 03/17/25 16:00 03/17/25 16:03/17/25 16:03/17/25 16:00 Narrative Exam Physical Exam General: Awake and in no acute distress. Conversational and non-toxic appearing. HEENT: Normocephalic, atraumatic, mucous membranes moist. Heart: Regular rate and rhythm, no murmurs. Lungs: Clear to auscultation with no wheezing or crackles. Abdomen: Soft, nondistended, nontender. No guarding or rebound tenderness. Neurologic: Alert and oriented x3, no gross neurological deficit, and patient able to move all 4 extremities. Extremities: No edema. Right shoulder with normal range of motion. Skin: No rash or ecchymoses Objective Labs 03/18/25 04:33 03/18/25 04:33 Labs: Laboratory Results - last 24 hr 03/17/25 05:03 WBC 4.5 RBC 4.01 L Hgb 12.9 L Hct 38.0 L MCV 95 MCH 32.2 MCHC 33.9 RDW Std Deviation 45.7 H Plt Count 145 D Neut % (Auto) 54 Lymph % (Auto) 32 [place] % (Auto) 12 Eos % (Auto) 2 Baso % (Auto) 1 Neut # (Auto) 2.4 Lymph # (Auto) 1.4 [place] # (Auto) 0.5 Eos # (Auto) 0.1 Baso # (Auto) 0.0 Immature Gran # (Auto) 0.01 H Absolute Nucleated RBC 0.00 Immature Gran % 0 Nucleated RBC % 0 APTT 30.5 Sodium 141 Potassium 4.0 Chloride 108 H Carbon Dioxide 23.9 Anion Gap 9 BUN 8 L Creatinine 0.7 Estim Creat Clear Calc 74.4 eGFR > 60 BUN/Creatinine Ratio 11 L Glucose 81 Calculated Osmolality 278 Calcium 8.5 Corrected Calcium 9.1 Phosphorus 2.1 L Magnesium 2.1 Total Bilirubin 0.7 AST 17 ALT 13 Alkaline Phosphatase 60 Total Protein 5.4 L Albumin 3.3 L Globulin 2.1 L Albumin/Globulin Ratio 1.6 ABG Interpretation ABG results: 03/15/25 04:10 ABG pH 7.51 H ABG pCO2 26 L ABG pO2 66 L ABG HCO3 21 ABG O2 Saturation 95 ABG Base Excess -1 Quality Measures Quality Measures sepsis Current suspected stage: sepsis Possible source: genitourinary Blood cultures ordered: yes Antibiotic ordered: Yes Advance care planning discussed with:: patient and spouse Assessment & Plan Assessment Current Active Medications: Generic Name Dose Route Start Last Admin Trade Name Freq PRN Reason Stop Dose Admin Acetaminophen 650 mg 03/16/25 10:12 03/16/25 20:17 Acetaminophen 325 Mg Tablet PO 04/14/25 06:04 650 mg Q6H PRN Administration Fever >100.4 or pain 1-3 Hydrocodone Bitart/Acetaminophen 1 tab 03/15/25 06:05 03/17/25 00:07 Hydrocodone/Apap 5/325 Tablet PO 03/20/25 06:04 1 tab Q4HR PRN Administration PAIN SCALE 4-10(Mod-Sev Apixaban 5 mg 03/17/25 13:15 03/17/25 14:20 Apixaban 2.5 Mg Tablet PO 04/16/25 13:14 5 mg BID DANAE Administration Docusate Sodium 100 mg 03/15/25 06:05 Docusate Sod 100 Mg Capsule PO 04/14/25 06:04 QDAY PRN CONSTIPATION Protocol Ceftriaxone Sodium/Dextrose 1 gm in 50 mls @ 100 mls/hr 03/15/25 06:07 03/17/25 08:41 Rocephin/D5w 1gm Iv Premix IV 03/22/25 06:06 100 mls/hr QDAY DANAE Administration Amiodarone HCl/Dextrose 360 mg in 200 mls @ 16.667 mls/hr 03/17/25 13:23 03/17/25 14:20 Nexterone Ivpb IV 03/18/25 13:22 16.667 mls/hr .Q12H DANAE Administration Amiodarone HCl/Dextrose 360 mg in 200 mls @ 33.333 mls/hr 03/18/25 13:23 Nexterone Ivpb IV 03/18/25 19:22 .Q6H ONE Sennosides 1 tab 03/15/25 06:05 Senna Tablet PO 04/14/25 06:04 QDAY PRN constipation Protocol Plan 79-year-old male without known past medical history presented with acute altered mental status, fever, and urinary symptoms, found to have sepsis complicated by electrolyte abnormalities, elevated troponin, and one transient episode of A-fib in the ED which self resolved, found to have another episode of A-fib during hospitalization. #Acute encephalopathy (resolved) #Sepsis secondary to urinary tract infection Met sepsis criteria with fever, tachycardia and evidence of end-organ dysfunction (altered mental status). Patient presented with altered mental status, which as resolved. Urinalysis was positive for leukocyte esterase, nitrites, and bacteria. Received a 30 cc/kg IV fluid bolus in ED. Blood culture: no growths after 48 hours. Urine culture: E.coli. Plan: - Continue Rocephin 1 gram daily (03/15-). - Continue with gentle IV hydration. - Acetaminophen PRN for fever. - Monitor mental status, vitals. - Pending bladder scan. #Troponinemia #NSTEMI type 2 Likely due to demand ischemia in setting of dehydration and infection, given absence of chest pain and only minimal ST elevation in V3. Troponin peaked at 0.352. Received Aspirin 325 mg x1. Plan: - Continue to monitor on telemetry. - Repeat EKGs for any change in symptoms or rhythm. - Optimize hemodynamics and treat underlying sepsis. - Maintain adequate oxygenation and avoid hypotension to reduce myocardial stress. #New onset, AFIB with RVR Echo (03/15): Grade I diastolic dysfunction. EF 55-60%. Left Atrium severely dilated. Ascending aorta dilated measuring 3.2 cm. Mild mitral and tricuspid regurgitation. Aortic valve sclerosis with mild to moderate aortic regurgitation. Plan: - Started Amiodarone drip and Eliquis 5 mg BID per cardio recs. - Continue Atorvastatin 80 mg daily. - Discontinued heparin. #Electrolyte imbalances #Hypomagnesemia (resolved) #Hypophosphatemia Mg of 1.3 --> 1.7 Phosphorous of 1.3 --> 2.1 Plan: - Gave Neutra-Phos x1. - Recheck levels after repletion. - Monitor for associated arrhythmias. - Continue to replete electrolytes as needed to maintain Mg >2.0 and K+ > 4.0. #Hyperbilirubinemia (resolved) Total bilirubin of 1.6, rest of the LFTs are within normal limits. No right upper quadrant pain. Liver ultrasound: Normal gallbladder, Normal common bile duct. Health Maintenance: Dispo: Telemetry for management of sepsis secondary to UTI DVT prophylaxis: on Eliquis GI prophylaxis: none Diet: Cardiac diet Lines: Peripheral IV CODE STATUS: FULL Patient plan of care was discussed with the senior resident, Dr. Acosta, and attending physician, . Lenny Schmid DO Attending Provider Attestation/Addendum I have examined the patient, reviewed labs and imaging findings, discussed the case with the resident(s), and reviewed entered orders. I agree with the plan of care as outlined in this note, with these additional summaries/recommendations: Patient seen at bedside. No acute overnight events. Patient noted to be back in atrial fibrillation with rapid ventricular of the spots this morning. Overall has remained in RVR with short runs up into the 180s. He reports he is currently asymptomatic. Patient started on amiodarone gtt. and Eliquis 5 mg p.o. twice daily for elevated [id number]. Monitor electrolytes closely. Mild hypophosphatemia and replacement given. Status post echocardiogram which revealed grade 1 diastolic dysfunction with ejection fraction of 55 to 60%. Patient originally admitted for acute encephalopathy secondary to urinary tract infection. Encephalopathy has resolved. Continue Rocephin for E. coli urinary tract infection. Troponins have peaked and downtrending and most likely secondary to demand ischemia although appreciate cardiology recommendations. Patient updated on the plan and agreement. All questions answered to satisfaction. Please see residents note for additional details and management. Dr. Royal MD
[2025-03-17 19:19] LABS: Partial Thromboplastin Time 30.9 Seconds (22.0-36.0)
[2025-03-18] VITALS (7 sets, daily range): BP systolic 122–147; BP diastolic 75–91; PULSE 65–87; RESP 12–96; TEMP 36.1–36.5; O2SAT 93–97
[2025-03-18] MEDS: AMIODARONE 360 MG IVPB 360 MG/200 ML BAG 16.667 MG IV (02:28)
[2025-03-18 06:13] LABS: Alanine Aminotransferase 14 U/L (10-49); Albumin, Serum 3.5 gm/dL (3.4-4.8); Albumin/Globulin Ratio 1.7 (1.2-2.2); Alkaline Phosphatase 64 U/L (46-116); Anion Gap 10 (7-16); Aspartate Amino Transferase 15 U/L (0-34); BUN/Creatinine Ratio 8 Ratio (12-20); Bilirubin,Total 0.5 mg/dL (0.3-1.2); Blood Urea Nitrogen 6 mg/dL (9-23); Calcium 8.9 mg/dL (8.3-10.6); Calcium (Corrected) 9.3 mg/dL (8.5-10.1); Carbon Dioxide 23.9 mMol/L (20.0-31.0); Chloride 107 mMol/L (98-107); Creatinine (Component) 0.8 mg/dL (0.6-1.3); Estimated Creatinine Clearance 63.9 mL/min (>60); Globulin 2.1 gm/dL (2.3-3.5); Glucose 111 mg/dL (74-106); Magnesium 1.9 mg/dL (1.6-2.6); Osmolality,Calculated 279 (275-295); Phosphorous 2.7 mg/dL (2.4-5.1); Potassium 3.9 mMol/L (3.4-5.1); Sodium 141 mMol/L (136-145); Total Protein 5.6 gm/dL (5.7-8.2); eGFR > 60 See Note
[2025-03-18 06:26] LABS: Basophils # (Auto) 0.0 Thou/mm3 (0.0-0.2); Basophils % (Auto) 0 % (0-2.5); Eosinophils # (Auto) 0.0 Thou/mm3 (0.0-0.5); Eosinophils % (Auto) 1 % (0-10); Hematocrit 40.2 % (41.0-53.0); Hemoglobin 13.3 g/dL (13.5-16.0); Immature Granulocytes Auto 0.01 Thou/mm3 (0.00-0.00); Lymphocytes # (Auto) 1.4 Thou/mm3 (1.0-4.8); Lymphocytes % (Auto) 24 % (10-50); Mean Corpuscular HGB Conc 33.1 g/dl (31.0-37.0); Mean Corpuscular Hemoglobin 31.6 pg (25.0-35.0); Mean Corpuscular Volume 96 fL (80-100); Monocytes # (Auto) 0.6 Thou/mm3 (0.0-0.8); Monocytes % (Auto) 10 % (0-12); Neutrophils # (Auto) 3.9 Thou/mm3 (1.8-7.7); Neutrophils % (Auto) 66 % (37-80); Nucleated Red Blood Cell # 0.00 Thou/mm3 (0.00-0.00); Nucleated Red Blood Cell % 0 /100 WBC (0); Platelet Count 147 Thou/mm3 (140-440); RDW Standard Deviation 45.8 fL (35.1-43.9); Red Blood Count 4.21 Miln/mm3 (4.50-5.90); White Blood Count 5.9 Thou/mm3 (3.8-10.6)
[2025-03-18] MEDS: APIXABAN 2.5 MG TABLET 5 MG PO (08:05)
[2025-03-18] MEDS: cefTRIAXone/D5w 1gm IV premix 1 GM/50 ML BAG IV (08:05)
[2025-03-18] MEDS: POTASSIUM CHL 10 mEq IVPB 10 MEQ/100 ML BAG 100 MEQ IV (08:06)
[2025-03-18] MEDS: Magnesium Sulfate 2 GM Ivpb 2 GM/50 ML BAG IV (08:06)
--- NOTE | 2025-03-18 09:51 | PD.RESPRO ---
Documentation for date of: 03/18/25 Exam Vital Signs Temp Pulse Resp BP Pulse Ox O2 Del Method O2 Flow Rate 97.2 F 67 19 135/81 H 94 L Room Air 1 03/18/25 08:00 03/18/25 08:00 03/18/25 08:00 03/18/25 08:00 03/18/25 08:00 03/18/25 08:00 03/17/25 16:00 Objective Labs 03/18/25 04:33 03/18/25 04:33 Labs: Laboratory Results - last 24 hr 03/17/25 03/17/25 03/18/25 05:03 18:24 04:33 WBC 5.9 RBC 4.21 L Hgb 13.3 L Hct 40.2 L MCV 96 MCH 31.6 MCHC 33.1 RDW Std Deviation 45.8 H Plt Count 147 Neut % (Auto) 66 Lymph % (Auto) 24 [place] % (Auto) 10 Eos % (Auto) 1 Baso % (Auto) 0 Neut # (Auto) 3.9 Lymph # (Auto) 1.4 [place] # (Auto) 0.6 Eos # (Auto) 0.0 Baso # (Auto) 0.0 Immature Gran # (Auto) 0.01 H Absolute Nucleated RBC 0.00 Immature Gran % 0 Nucleated RBC % 0 APTT 30.5 30.9 Sodium 141 Potassium 3.9 Chloride 107 Carbon Dioxide 23.9 Anion Gap 10 BUN 6 L Creatinine 0.8 Estim Creat Clear Calc 63.9 eGFR > 60 BUN/Creatinine Ratio 8 L Glucose 111 H Calculated Osmolality 279 Calcium 8.9 Corrected Calcium 9.3 Phosphorus 2.7 Magnesium 1.9 Total Bilirubin 0.5 AST 15 ALT 14 Alkaline Phosphatase 64 Total Protein 5.6 L Albumin 3.5 Globulin 2.1 L Albumin/Globulin Ratio 1.7 ABG Interpretation ABG results: 03/15/25 04:10 ABG pH 7.51 H ABG pCO2 26 L ABG pO2 66 L ABG HCO3 21 ABG O2 Saturation 95 ABG Base Excess -1 Quality Measures Quality Measures sepsis Possible source: genitourinary Blood cultures ordered: yes Assessment & Plan Assessment Current Active Medications: Generic Name Dose Route Start Last Admin Trade Name Freq PRN Reason Stop Dose Admin Acetaminophen 650 mg 03/16/25 10:12 03/16/25 20:17 Acetaminophen 325 Mg Tablet PO 04/14/25 06:04 650 mg Q6H PRN Administration Fever >100.4 or pain 1-3 Hydrocodone Bitart/Acetaminophen 1 tab 03/15/25 06:05 03/17/25 00:07 Hydrocodone/Apap 5/325 Tablet PO 03/20/25 06:04 1 tab Q4HR PRN Administration PAIN SCALE 4-10(Mod-Sev Apixaban 5 mg 03/17/25 13:15 03/18/25 08:05 Apixaban 2.5 Mg Tablet PO 04/16/25 13:14 5 mg BID DANAE Administration Docusate Sodium 100 mg 03/15/25 06:05 Docusate Sod 100 Mg Capsule PO 04/14/25 06:04 QDAY PRN CONSTIPATION Protocol Ceftriaxone Sodium/Dextrose 1 gm in 50 mls @ 100 mls/hr 03/15/25 06:07 03/18/25 08:05 Rocephin/D5w 1gm Iv Premix IV 03/22/25 06:06 100 mls/hr QDAY DANAE Administration Amiodarone HCl/Dextrose 360 mg in 200 mls @ 16.667 mls/hr 03/17/25 13:23 03/18/25 02:28 Nexterone Ivpb IV 03/18/25 13:22 16.667 mls/hr .Q12H DANAE Administration Amiodarone HCl/Dextrose 360 mg in 200 mls @ 33.333 mls/hr 03/18/25 13:23 Nexterone Ivpb IV 03/18/25 19:22 .Q6H ONE Sennosides 1 tab 03/15/25 06:05 Senna Tablet PO 04/14/25 06:04 QDAY PRN constipation Protocol
--- NOTE | 2025-03-18 15:48 | ESDS_ITS ---
<Statement entered by Mehul Brink MD - 03/18/25 17:24> Patient was examined and case was reviewed with team including attending physician. Note reviewed, I agree with most of its contents and agree with the patient's care as documented by Dr. Schmid Case discussed with my attending Dr. Royal Brink MD PGY-2 Disclaimer: Despite multiple revisions, due to the dictation software being used, the document bellow may not be free of grammatical errors including phonetic/typographic errors. However, this does not deter from our commitment to providing health care in the patient's best interest in mind. Planned Discharge Date 03/18/25 DS: Providers Provider Date of admission: 03/15/25 06:05 Primary care physician: Josr Coronado MD Admitting Provider: Nicko Pinedo MD Attending Provider on Admission: Nicko Pinedo MD Consults: 03/15/25 10:35 Consult to Cardiology Stat Comment: Consulting Provider: Julienne Fierro Instructions: new onset A-fib Attending Provider on DC: Anatoly Paige MD Discharging Provider: Lenny Schmid DO Anticipated date of discharge: 03/18/25 DS: Diagnosis Problem List Completed Was Problem List Reviewed/Reconciled?: Yes Hospital Course Hospital Course Hospital course: 79-year-old man without known chronic medical conditions, presented with acute confusion, fever, and urinary complaints. On arrival, he was febrile, tachycardic, and had laboratory findings suggestive of infection, electrolyte derangements, and myocardial strain. Urinalysis was consistent with a urinary tract infection. He was also noted to have a brief episode of atrial fibrillation with rapid ventricular response, which resolved after intravenous fluid resuscitation. He was started on intravenous antibiotics, received fluid resuscitation, antipyretics, and electrolyte replacement. Blood and urine cultures were obtained. Cardiology was consulted for evaluation of elevated troponin and the episode of atrial fibrillation. The troponin elevation was felt to be due to demand ischemia in the setting of sepsis. Echocardiogram demonstrated preserved left ventricular function, mild valvular regurgitation, a dilated left atrium, and a mildly dilated ascending aorta. Electrolyte imbalances, including hypomagnesemia and hypophosphatemia, were corrected. Mental status returned to baseline and urinary symptoms improved with antibiotics. On the third hospital day, he had another episode of atrial fibrillation with rapid ventricular response during activity. He remained asymptomatic. Cardiology recommended initiation of an amiodarone infusion and anticoagulation with apixaban. His rhythm stabilized and he remained hemodynamically stable thereafter. Patient is medically and physically stable for discharge. Diagnosis: #Sepsis secondary to urinary tract infection #Acute encephalopathy #New-onset atrial fibrillation with rapid ventricular response #NSTEMI Type II #Hypomagnesemia #Hypophosphatemia #Hyperbilirubinemia #Mild valvular heart disease (mitral, tricuspid, and aortic regurgitation) #Dilated left atrium and ascending aorta Discharge Plan: Follow up with primary care physician within 1 week discharge Follow with Cardiology within 2 weeks of discharge in regards to your atrial fibrillation You have been prescribed Eliquis and Amiodarone for your Atrial fibrillation, Eliquis is a blood thinner should you hit your head please come to the ER emergently Should your symptoms recur or worsen patient is instructed to return ot the ED. Case discussed with my senior resident Dr. Baudilio Brink and my attending . Lenny Schmid DO PGY 1 Status at Discharge Overall status at discharge: patient is back to baseline Time Spent with Patient Time attestation: Total time spent providing and/or coordinating discharge services: Time spent: Greater than 30 minutes Exam Vital Signs Temp Pulse Resp BP Pulse Ox O2 Del Method O2 Flow Rate 97.7 F 87 20 124/75 93 L Room Air 1 03/18/25 12:00 03/18/25 13:32 03/18/25 13:32 03/18/25 12:00 03/18/25 12:00 03/18/25 12:00 03/17/25 16:00 Narrative Exam Physical Exam General: Awake and in no acute distress. Conversational and non-toxic appearing. HEENT: Normocephalic, atraumatic, mucous membranes moist. Heart: Regular rate and rhythm, no murmurs. Lungs: Clear to auscultation with no wheezing or crackles. Abdomen: Soft, nondistended, nontender. No guarding or rebound tenderness. Neurologic: Alert and oriented x3, no gross neurological deficit, and patient able to move all 4 extremities. Extremities: No edema. Right shoulder with normal range of motion. Skin: No rash or ecchymoses Discharge Plan Plan Patient Disposition: HOME (Self Care) Care Plan Goals: Follow up with primary care physician within 1 week discharge Follow with Cardiology within 2 weeks of discharge in regards to your atrial fibrillation You have been prescribed Eliquis and Amiodarone for your Atrial fibrillation, Eliquis is a blood thinner should you hit your head please come to the ER emergently Should your symptoms recur or worsen patient is instructed to return ot the ED. Prescriptions/Referrals Prescriptions/Med Rec: New Eliquis 5 mg tablet 5 mg PO BID Qty: 60 0RF amiodarone 200 mg tablet 200 mg PO BID Qty: 60 0RF Referrals: Josr Coronado MD [Primary Care Provider] - Patient/Caregiver Discharge Instructions Print Language: Czech Stand Alone Forms: [facility] Award Info., Patient Portal Info Letter Discharge Order Discharge Orders: Discharge (Routine); Ordered 03/18/25 Ordered By: Mehul Brink Quality Discharge Quality Measures none MD Attestestation MD Attestation I have examined the patient, reviewed labs and imaging findings, discussed the case with the resident(s), and reviewed entered orders. I agree with the plan of care as outlined in this note. Time Spent: [address] Royal MD
== END 2025-03-18 16:44 | disposition home or self-care (01) | DRG 871 ==
LOC: SERX 05:37 → SERHOLD 07:16 → S2NX 16:25
PROVIDERS: Student in an Organized Health Care Education/Training Program; Admitting Provider Student in an Organized Health Care Education/Training Program; Emergency Provider Emergency Medicine; PCP Internal Medicine; Visit Provider Student in an Organized Health Care Education/Training Program
DX: A41.51 Sepsis due to Escherichia coli [E. coli] (principal); G93.41 Metabolic encephalopathy; I21.A1 Myocardial infarction type 2; N39.0 Urinary tract infection, site not specified; R17 Unspecified jaundice; I48.91 Unspecified atrial fibrillation; Z96.659 Presence of unspecified artificial knee joint; E83.42 Hypomagnesemia; E83.39 Other disorders of phosphorus metabolism; K59.00 Constipation, unspecified; Z79.01 Long term (current) use of anticoagulants; Z79.899 Other long term (current) drug therapy; T39.315A Adverse effect of propionic acid derivatives, initial encounter; I08.0 Rheumatic disorders of both mitral and aortic valves; I08.3 Combined rheumatic disorders of mitral, aortic and tricuspid valves; E86.0 Dehydration
CPT/HCPCS: 36415; 36600; 71045; 76705; 80053; 80061; 81001; 82803; 83605; 83615; 83690; 83735; 83880; 84100; 84145; 84443; 84484; 85025; 85610; 85730; 87040; 87077; 87086; 87186; 87400; 87811; 93005; 93306; 96361; 96365; 96366; 99284; J0283; J0696; J1644; J1650; J2543; J3373; J3475; J3480; J7030; J7050; J7999; A9270

== ENCOUNTER 2025-05-26 11:09 | Day surgery (SDC) | payer MEDICARE, BC, SELFPAY ==
[2025-05-24 15:32] VITALS: BMI 22.4
[2025-05-26] VITALS (10 sets, daily range): BP systolic 110–160; BP diastolic 70–96; PULSE 60–73; RESP 14–19; TEMP 36.4–37; O2SAT 92–96; BMI 22.3
--- NOTE | 2025-05-26 10:04 | EKG_ITS ---
[facility] Test Date: 2025-05-26 Pat Name: FAUSTINO NIEVES Department: Room: - Gender: Male [employer]: OWEN : 1945 Requested By: Julienne Hodgson Order Number: [id number] Reading MD: Julienne Hodgson Measurements Intervals [place] Rate: 65 P: 47 GA: 180 QRS: -68 QRSD: 128 T: 77 QT: 435 QTc: 455 Interpretive Statements SINUS RHYTHM LEFT ANTERIOR FASCICULAR BLOCK [QRS AXIS <= -45, QR IN I, RS IN II] POSSIBLE LATERAL MYOCARDIAL INFARCTION , OF INDETERMINATE AGE [30 ms Q WAVE IN I/aVL/V5/V6] Compared to ECG 03/17/2025 09:46:02 Myocardial infarct finding now present Atrial fibrillation no longer present /store/S0/[id number]
[2025-05-26 10:40] LABS: Basophils # (Auto) 0.0 Thou/mm3 (0.0-0.2); Basophils % (Auto) 1 % (0-2.5); Eosinophils # (Auto) 0.1 Thou/mm3 (0.0-0.5); Eosinophils % (Auto) 1 % (0-10); Hematocrit 46.4 % (41.0-53.0); Hemoglobin 15.2 g/dL (13.5-16.0); Immature Granulocytes Auto 0.02 Thou/mm3 (0.00-0.00); Lymphocytes # (Auto) 0.9 Thou/mm3 (1.0-4.8); Lymphocytes % (Auto) 21 % (10-50); Mean Corpuscular HGB Conc 32.8 g/dl (31.0-37.0); Mean Corpuscular Hemoglobin 30.7 pg (25.0-35.0); Mean Corpuscular Volume 94 fL (80-100); Monocytes # (Auto) 0.5 Thou/mm3 (0.0-0.8); Monocytes % (Auto) 10 % (0-12); Neutrophils # (Auto) 2.9 Thou/mm3 (1.8-7.7); Neutrophils % (Auto) 66 % (37-80); Nucleated Red Blood Cell # 0.00 Thou/mm3 (0.00-0.00); Nucleated Red Blood Cell % 0 /100 WBC (0); Platelet Count 149 Thou/mm3 (140-440); RDW Standard Deviation 48.8 fL (35.1-43.9); Red Blood Count 4.95 Miln/mm3 (4.50-5.90); White Blood Count 4.3 Thou/mm3 (3.8-10.6)
[2025-05-26 11:02] LABS: INR 1.0 (0.9-1.3); Partial Thromboplastin Time 27.9 Seconds (22.0-36.0); Prothrombin Time 11.0 Seconds (9.0-12.2)
[2025-05-26 11:03] LABS: Anion Gap 8 (7-16); BUN/Creatinine Ratio 12 Ratio (12-20); Blood Urea Nitrogen 14 mg/dL (9-23); Calcium 9.2 mg/dL (8.3-10.6); Carbon Dioxide 24.6 mMol/L (20.0-31.0); Chloride 107 mMol/L (98-107); Creatinine (Component) 1.2 mg/dL (0.6-1.3); Estimated Creatinine Clearance 43.2 mL/min (>60); Glucose 94 mg/dL (74-106); Osmolality,Calculated 279 (275-295); Potassium 4.6 mMol/L (3.4-5.1); Sodium 140 mMol/L (136-145); eGFR > 60 See Note
[2025-05-26] MEDS: SODIUM CHLORIDE 0.45 % 500 ML 100 ML IV (13:00)
--- NOTE | 2025-05-26 14:35 | ESOP_ITS ---
RE: FAUSTINO NIEVES : 1945 DATE OF OPERATION: 05/26/2025 PROCEDURES PERFORMED: 1. Diagnostic left heart catheterization, selective coronary angiogram, and left ventricle angiogram (CPT 07988). 2. Ultrasound-guided access of right femoral artery. 3. Conscious sedation, 30-minute duration. 4. Iliofemoral angiogram followed by Angio-Seal deployment. DIAGNOSES: 1. Coronary disease. 2. Abnormal stress test. 3. Angina pectoris. HISTORY AND INDICATIONS: The patient is a 70-year-old male with a past medical history of multiple medical problems. Risk factors include hypertension and cardiac arrhythmias. He has angina pectoris, moderate valvular heart disease, and mitral regurgitation. He was doing fairly well until recently. He is having shortness of breath and chest pressure. Patient was hospitalized and was found to have NSTEMI, elevated troponin levels, and an abnormal echo, hence coronary angiogram was recommended. So, this patient is a candidate for either coronary intervention or revascularization procedure. DESCRIPTION OF PROCEDURE: The patient was brought to the cardiac catheterization laboratory. He was given 2 mg of Versed and 50 mcg of fentanyl for conscious sedation. Right radial approach was taken initially, but the right radial artery was cannulated by ultrasound guidance, but wire could not pass beyond the mid segment in the radial artery due to tortuosity, hence proceeded with the femoral approach. Right femoral approach was taken. Right femoral artery was cannulated by micropuncture technique and a 5-Congolese sheath was introduced. Selective right and left coronary angiogram were performed with Caroline right and Caroline left catheter. Left heart catheterization and left ventricular angiogram were performed by 5-Congolese pigtail catheter. Patient tolerated this well with no complications. Cardiac catheterization show following findings. HEMODYNAMICS: Left ventricular pressure 123/4, EDP 20. Aortic pressure 127/72. No gradient across the aortic valve. Left ventricle angiogram showed mild inferior apical hypokinesis. Ejection fraction 55-60%. Coronary angiogram show following findings: Right coronary is large and dominant, gives off PDA and posterolateral branches, all of them normal. Left coronary system, left main coronary artery is normal. Left anterior descending artery shows mild plaque in the mid segment with approximately 50% stenosis. Distal LAD is small and appears normal. Circumflex artery is large and dominant, appears codominant, and appears normal. SUMMARY OF FINDINGS: 1. Normal nonobstructive epicardial coronary disease except for mild atherosclerotic plaque, essentially normal coronary arteries. 2. Normal left ventricular function. Patient underwent iliofemoral angiogram and Angio-Seal was deployed successfully. Hemostasis was secured. COMPLICATIONS: None. ESTIMATED BLOOD LOSS: None. Patient will be discharged home same day after 2 hours of observation and re-evaluation. DT: 14:17:18 TT: 14:34:00 Ref: [id number] - TID: [id number]
--- NOTE | 2025-05-26 15:19 | PC.NURSE ---
13:45 patient head was elevated and right groin looks normal with no signs of hematoma or complictions at 14:45 patient stood up and RIGHT FEMORAL PULSE NOTED WITH NO CHANGES IN STRENth AND QUALITY, RIGHT DORSALIS PEDIS PULSE NOTED WITH NO CHANGES STRENGHT AND QUALITY. DISTAL CAPPILARRY REFILL <3 SECONDS (Baseline, Right Toes). NO NOTED CHANGES IN COLOR OR TEMPERATURE ON RIGHT LOWER EXTREMITY. PATIENT DENIES GENERAL AND LOCALIZED PAIN. NO TINGLING OR NUMBNESS FELT TO RIGHT LOWER EXTREMITY. SURGICAL SITE COVERED WITH GAUZE AND TAGADERM DRESSING, WHICH REMAIN DRY AND INTACT. WILL CONTINUE TO MONITOR. SURGICAL SITE TO RIGHT GROIN AREA REMAINS ASYMPTOMATIC, NO ACTIVE BLEEDING, NO HEMATOMA NOTED ON RIGHT GROIN AREA. RIGHT FEMORAL PULSE NOTED WITH NO CHANGES IN STRENGHT AND QUALITY UPON PALPATION, RIGHT DORSALIS PEDIS PULSE NOTED WITH NO CHANGES STRENGHT AND QUALITY. DISTAL CAPPILARRY REFILL <3 SECONDS (Baseline, Right Toes). NO NOTED CHANGES IN COLOR OR TEMPERATURE ON RIGHT LOWER EXTREMITY. PATIENT DENIES GENERAL AND LOCALIZED PAIN. NO TINGLING OR NUMBNESS FELT TO RIGHT LOWER EXTREMITY. SURGICAL SITE COVERED WITH GAUZE AND TAGADERM DRESSING, WHICH REMAIN DRY AND INTACT.
== END 2025-05-26 15:00 | disposition home or self-care (01) ==
LOC: SCCL 11:09
PROVIDERS: PCP Internal Medicine; Referring Provider Internal Medicine Cardiovascular Disease; Visit Provider Internal Medicine Cardiovascular Disease
PROC: (CPT 93458; principal; 2025-05-26 11:30)
DX: I25.118 Atherosclerotic heart disease of native coronary artery with other forms of angina pectoris (principal); I48.21 Permanent atrial fibrillation; Z01.810 Encounter for preprocedural cardiovascular examination; I10 Essential (primary) hypertension; I34.0 Nonrheumatic mitral (valve) insufficiency; Z79.899 Other long term (current) drug therapy; Z79.01 Long term (current) use of anticoagulants; I25.2 Old myocardial infarction
CPT/HCPCS: 93458; 36415; 80048; 85025; 85610; 85730; 93005; 99152; A4649; C1725; C1760; C1769; C1894; J0461; J1643; J2250; J2312; J2371; J3010; J3490; J7030; Q9967; J2305